=== PATIENT | male | born 1950 | race Caucasian/White ===

== ENCOUNTER → 2018-06-10 | Outpatient (CLI) | payer MEDICARE, OTHER | LOC: COL.RAD 13:30 | DX: M47.26 Other spondylosis with radiculopathy, lumbar region (principal); M16.12 Unilateral primary osteoarthritis, left hip ==

== ENCOUNTER 2021-07-24 17:06 | Inpatient (IN) | payer MEDICARE, OTHER ==
[2021-07-24] VITALS (74 sets, daily range): BP systolic 101–104; BP diastolic 54–65; PULSE 101; TEMP 98.1; O2SAT 89–97
[~2021-07-24] VITALS: Ht 177.8 cm; Wt 108.6 kg
[2021-07-24 17:57] LABS: HEMOGLOBIN 12.3 g/dl (13.5-18.0); MEAN CELL VOLUME 86 fl (80.0-100.0); MEAN CORPUSCULAR HEMOGLOBIN 29 pg (27.0-31.0); MEAN CORPUSCULAR HGB CONC 33 g/dl (33.0-37.0); PLATELET COUNT 374 K/mm3 (130-400); RED BLOOD COUNT 4.26 M/mm3 (4.20-5.60); REDCELL DISTRIBUTION WIDTH-CV 15.9 % (11.5-14.5)
[2021-07-24 18:31] LABS: HEMATOCRIT 36.8 % (42.0-52.0)
[2021-07-24] MEDS ORDERED: PRINIVIL20 MG PO (18:39)
[2021-07-24] MEDS ORDERED: LIPITOR 40MG TA40 MG PO (18:39)
[2021-07-24] MEDS ORDERED: XARELTO10 MG PO (18:39)
[2021-07-24 18:42] LABS: INR 1.9 (0.8-3.0); PROTHROMBIN TIME 20.7 SECONDS (9.7-12.8)
[2021-07-24 18:50] LABS: ALBUMIN 1.6 gm/dL (3.4-4.8); BILIRUBIN,TOTAL 1.4 mg/dL (0.2-1.2); C-REACTIVE PROTEIN 28.43 mg/dL (0.00-0.50); CALCIUM 8.1 mg/dL (8.4-10.2); CREATININE, serum 2.95 mg/dL (0.72-1.25); POTASSIUM 3.5 mmol/L (3.5-4.5)
[2021-07-24 18:55] LABS: TROPONIN-I 0.014 ng/mL (0.00-0.033)
[2021-07-24 19:02] LABS: BAND 2 % (0-10); LYMPHOCYTE 7 % (20.0-51.0); NEUTROPHILS 83 % (42.0-75.2)
[2021-07-24 19:04] LABS: ANISOCYTOSIS 1+; HYPOCHROMIA 1+; PLATELET ESTIMATE NORMAL (NORMAL)
[2021-07-24 21:42] LABS: CLOSTRIDIUM DIFF A/B NEG; CLOSTRIDIUM DIFF A/B INTERP NonToxigenic C.diff
[2021-07-25] VITALS (692 sets, daily range): BP systolic 73–113; BP diastolic 48–95; PULSE 90–117; TEMP 97–98.8; O2SAT 88–96
--- NOTE | 2021-07-25 02:46 | NUR ---
MERRITT 16 FR PLACED BY VIA YONI'S PROTOCOL ON CLEANING AND INSERTION. 240 CC RESIDUAL DARK ADWOA COLORED URINE CLEAR
[2021-07-25 05:00] LABS: HEMOGLOBIN 10.8 g/dl (13.5-18.0); MEAN CELL VOLUME 84 fl (80.0-100.0); MEAN CORPUSCULAR HEMOGLOBIN 28 pg (27.0-31.0); MEAN CORPUSCULAR HGB CONC 34 g/dl (33.0-37.0); MEAN PLATELET VOLUME 10.6 fl (7.4-10.4); PLATELET COUNT 366 K/mm3 (130-400); RED BLOOD COUNT 3.83 M/mm3 (4.20-5.60); REDCELL DISTRIBUTION WIDTH-CV 15.9 % (11.5-14.5)
[2021-07-25 05:18] LABS: HEMATOCRIT 32.1 % (42.0-52.0)
[2021-07-25 05:21] LABS: CREATININE, serum 2.85 mg/dL (0.72-1.25); POTASSIUM 3.4 mmol/L (3.5-4.5)
[2021-07-25 05:27] LABS: BAND 28 % (0-10); LYMPHOCYTE 5 % (20.0-51.0); METAMYELOCYTE 1 % (0-0); NEUTROPHILS 58 % (42.0-75.2); PLATELET ESTIMATE NORMAL (NORMAL)
--- NOTE | 2021-07-25 09:44 | NUR ---
MR. TURCIOS APPEARS TO BE IN SOME PAIN. HIS ABDOMEN IS VERY DISTENDED AND FIRM.
--- NOTE | 2021-07-25 11:31 | NUR ---
Mobile Architect met with patient to discuss discharge planning. Patient lives in [facility] with his , Tiffany (ph#[phone]) [address] Dr. Reyes for primary care. Patient obtains medications from [facility] with no difficulties. Patient has been using a walker since his knee surgery on 07/12/21 and is set up with outpatient therapy at the [facility]. Patient reports he is normally independent with ADLS and plans to return home upon discharge. Patient does not have Advance Directives and is not sure if he wants to designate DPOA-HC at this time, but will think about it. Patient worked with PT and recommendation is for home with continued outpatient PT. Discharge Plan: Home
--- NOTE | 2021-07-25 18:30 | NUR ---
Received report from GANESH Mckenzie. All medications verified and all questions answered. Patient resting in bed. VSS. Patient on NS at 100mls/hr and levophed gtt at 53mls/hr. Patient on 3L O2 via NC. No concerns or complaints noted from patient at this time. Will resume care of patient at this time.
--- NOTE | 2021-07-25 21:00 | NUR ---
This RN increased patient to 4L O2 via NC d/t some increased shortness of breath. VSS. Patient has mild complaints of abdominal and right knee pain. Administered 2mg IV morphine for pain management. RT notified of O2 increase.
[2021-07-26] VITALS (246 sets, daily range): BP systolic 65–126; BP diastolic 36–64; PULSE 106–180; TEMP 97.6–98.7; O2SAT 90–95
[2021-07-26 05:55] LABS: HEMOGLOBIN 10.6 g/dl (13.5-18.0); MEAN CELL VOLUME 85 fl (80.0-100.0); MEAN CORPUSCULAR HEMOGLOBIN 29 pg (27.0-31.0); MEAN CORPUSCULAR HGB CONC 34 g/dl (33.0-37.0); MEAN PLATELET VOLUME 10.4 fl (7.4-10.4); PLATELET COUNT 351 K/mm3 (130-400); RED BLOOD COUNT 3.67 M/mm3 (4.20-5.60); REDCELL DISTRIBUTION WIDTH-CV 16.2 % (11.5-14.5)
[2021-07-26 05:58] LABS: HEMATOCRIT 31.2 % (42.0-52.0)
[2021-07-26 06:28] LABS: CALCIUM 6.7 mg/dL (8.4-10.2); CREATININE, serum 2.89 mg/dL (0.72-1.25); POTASSIUM 3.6 mmol/L (3.5-4.5)
--- NOTE | 2021-07-26 07:00 | NUR ---
Pt drowsy and having difficulty speaking in long sentences d/t shallow breathing. Pt denies shortness of breath, but does recognize abdomen distension making breathing more difficult than normal. Audible expiratory wheeze heard, however auscultation wheeze is less prominent Pt confused on date and time - otherwise oriented. Call light in reach
[2021-07-26 07:11] LABS: BAND 64 % (0-10); LYMPHOCYTE 8 % (20.0-51.0); METAMYELOCYTE 5 % (0-0); NEUTROPHILS 18 % (42.0-75.2)
[2021-07-26 07:12] LABS: ANISOCYTOSIS 1+; PLATELET ESTIMATE NORMAL (NORMAL)
[2021-07-26 13:09] LABS: CREATININE, serum 2.74 mg/dL (0.72-1.25); SODIUM 134 mmol/L (136-145)
[2021-07-26 13:13] LABS: FRACTIONAL EXCRETION OF NA+ 0.43 %
--- NOTE | 2021-07-26 17:06 | NUR ---
OR team here to take pt for surgery - pt's Tiffany at bedside
--- NOTE | 2021-07-26 17:10 | NUR ---
Pt to OR
--- NOTE | 2021-07-26 20:20 | NUR ---
Received call from OR that patient finished from surgery and on way back to unit and that patient will be intubated. Will receive bedside report on patient status and surgery outcome.
--- NOTE | 2021-07-26 20:31 | NUR ---
Patient arrived to unit via ICU bed and intubated accompanied by anesthesia provider, Dr. Leos and OR nurse. This RN will resume care of patient. Received beside report from OR nurse and Dr. Leos. Patient had colectomy with ostomy creation. Patient abdominal dressing CDI with telfa strips between staple line with adaptic and ABD pad and medipore tape to secure dressing. Patient abd appears rigid but hypoactice bowel sounds heard in left upper and lower quadrant while bowel sounds absent in right lower/upper quadrant. Patient has right sided ostomy. Patient intubated and had left radial art line placed in OR. Patient arrived to unit on 64.8mls/hr of levophed and was receiving LR bolus. Patient connected to ventilator with vent settings on assist control mode with peep of 10, fio2 of 80%, 500tv and rr of 16 with 8.0 ETT that sits 26cm at the teeth. NG tube inserted in OR and measured at 59cm and hooked to LIS per Dr. Leos. Hospitalist at bedside at 2044 to assess patient and place orders. Patient HR elevated at 126bpm, with low BPs reading 80s/40s via art line. This RN began to titrate levophed up and received order for quad strength levophed concentration. Patient also hooked up to CVP monitoring with CVP reading of 8. Patient started on fentanyl gtt at 1/3mls/hr and propofol gtt at 13mls/hr.
[2021-07-26 21:08] LABS: ARTERIAL BLD GAS O2 SATURATION 93.4 % (92-100); ARTERIAL BLD GAS TCO2 CT 14.9; ARTERIAL BLOOD GAS BASE EXCESS -14.5 (-2-2); ARTERIAL BLOOD GAS HCO3 13.6 meq/L (22-26); ARTERIAL BLOOD GAS PCO2 40.8 mmHg (35-45); ARTERIAL BLOOD GAS PO2 84.7 mmHg (80-100)
[2021-07-26 21:09] LABS: ARTERIAL BLOOD GAS pH 7.14 (7.35-7.45)
[2021-07-26 22:04] LABS: HEMOGLOBIN 10.2 g/dl (13.5-18.0); MEAN CORPUSCULAR HEMOGLOBIN 28 pg (27.0-31.0); MEAN CORPUSCULAR HGB CONC 31 g/dl (33.0-37.0); MEAN PLATELET VOLUME 10.2 fl (7.4-10.4); PLATELET COUNT 354 K/mm3 (130-400); RED BLOOD COUNT 3.63 M/mm3 (4.20-5.60); REDCELL DISTRIBUTION WIDTH-CV 16.8 % (11.5-14.5)
[2021-07-26 22:15] LABS: HEMATOCRIT 32.7 % (42.0-52.0); MEAN CELL VOLUME 90 fl (80.0-100.0)
[2021-07-26 22:25] LABS: ALBUMIN 0.9 gm/dL (3.4-4.8); BILIRUBIN,TOTAL 0.7 mg/dL (0.2-1.2); CREATININE, serum 2.5 mg/dL (0.72-1.25); MAGNESIUM 2.2 mg/dL (1.6-2.6); PHOSPHOROUS 7.1 mg/dL (2.3-4.7); POTASSIUM 4.1 mmol/L (3.5-4.5)
[2021-07-26 23:14] LABS: BAND 12 % (0-10); BASOPHIL 1 % (0-2); EOSINOPHIL 2 % (0-4); LYMPHOCYTE 19 % (20.0-51.0); METAMYELOCYTE 6 % (0-0); NEUTROPHILS 57 % (42.0-75.2); PLATELET ESTIMATE NORMAL (NORMAL)
[2021-07-26 23:16] LABS: ANISOCYTOSIS 1+; HYPOCHROMIA 2+
[2021-07-27] VITALS (30 sets, daily range): BP systolic 89–150; BP diastolic 51–86; PULSE 73–118; TEMP 97.8–99.5
[2021-07-27 02:09] LABS: ARTERIAL BLD GAS O2 SATURATION 97.3 % (92-100); ARTERIAL BLD GAS TCO2 CT 14.1; ARTERIAL BLOOD GAS BASE EXCESS -12.1 (-2-2); ARTERIAL BLOOD GAS HCO3 13.3 meq/L (22-26); ARTERIAL BLOOD GAS PCO2 28.6 mmHg (35-45); ARTERIAL BLOOD GAS PO2 111.9 mmHg (80-100); ARTERIAL BLOOD GAS pH 7.28 (7.35-7.45)
[2021-07-27 02:53] LABS: CREATININE, serum 2.37 mg/dL (0.72-1.25); POTASSIUM 3.9 mmol/L (3.5-4.5)
[2021-07-27 02:55] LABS: CALCIUM 5.6 mg/dL (8.4-10.2)
[2021-07-27 04:42] LABS: MEAN CELL VOLUME 86 fl (80.0-100.0); MEAN CORPUSCULAR HGB CONC 33 g/dl (33.0-37.0); MEAN PLATELET VOLUME 10.7 fl (7.4-10.4); PLATELET COUNT 256 K/mm3 (130-400); RED BLOOD COUNT 3.22 M/mm3 (4.20-5.60); REDCELL DISTRIBUTION WIDTH-CV 16.6 % (11.5-14.5)
--- NOTE | 2021-07-27 05:23 | NUR ---
Sedation vacation not attempted d/t patient being intubated for less than 24 hours.
[2021-07-27 05:31] LABS: ALBUMIN 1.9 gm/dL (3.4-4.8); BILIRUBIN,TOTAL 0.9 mg/dL (0.2-1.2); CALCIUM 6.2 mg/dL (8.4-10.2); CREATININE, serum 2.3 mg/dL (0.72-1.25); PHOSPHOROUS 5.7 mg/dL (2.3-4.7); TOTAL PROTEIN 4.3 gm/dL (6.2-8.1)
[2021-07-27 05:34] LABS: HEMATOCRIT 27.8 % (42.0-52.0); HEMOGLOBIN 9.1 g/dl (13.5-18.0); MEAN CORPUSCULAR HEMOGLOBIN 28 pg (27.0-31.0)
[2021-07-27 07:08] LABS: BAND 6 % (0-10); BASOPHIL 1 % (0-2); BURR CELLS 1+; HYPOCHROMIA 1+; LYMPHOCYTE 6 % (20.0-51.0); METAMYELOCYTE 9 % (0-0); NEUTROPHILS 74 % (42.0-75.2); PLATELET ESTIMATE NORMAL (NORMAL)
[2021-07-27 07:09] LABS: POIKILOCYTOSIS 1+
--- NOTE | 2021-07-27 14:26 | NUR ---
Sedation vacation performed: sedation paused while performing care in room - pt able to open eyes, answer yes and now questions with head nods, pt able to weakly move all extremities - sedation then resumed
--- NOTE | 2021-07-27 15:23 | NUR ---
Patient is currently intubated. Beauty Culture Teacher contacted patient's , Tiffany to check in before the weekend. Tiffany reports she is happy with the care patient has received. Tiffany has no questions or concerns for SW at this time.
[2021-07-27 18:02] LABS: MEAN CELL VOLUME 85 fl (80.0-100.0); MEAN CORPUSCULAR HGB CONC 34 g/dl (33.0-37.0); MEAN PLATELET VOLUME 10.4 fl (7.4-10.4); PLATELET COUNT 169 K/mm3 (130-400); RED BLOOD COUNT 2.56 M/mm3 (4.20-5.60); REDCELL DISTRIBUTION WIDTH-CV 16.7 % (11.5-14.5)
[2021-07-27 18:06] LABS: HEMATOCRIT 21.7 % (42.0-52.0); HEMOGLOBIN 7.3 g/dl (13.5-18.0); MEAN CORPUSCULAR HEMOGLOBIN 29 pg (27.0-31.0)
[2021-07-27 18:15] LABS: CALCIUM 6.3 mg/dL (8.4-10.2); CREATININE, serum 1.61 mg/dL (0.72-1.25); POTASSIUM 3.7 mmol/L (3.5-4.5)
[2021-07-28] VITALS (84 sets, daily range): BP systolic 106–142; BP diastolic 59–81; PULSE 62–79; TEMP 97.8–98.2; O2SAT 94–96
[2021-07-28 00:07] LABS: HEMATOCRIT 23.3 % (42.0-52.0); HEMOGLOBIN 7.9 g/dl (13.5-18.0)
[2021-07-28 03:57] LABS: MEAN CELL VOLUME 86 fl (80.0-100.0); MEAN CORPUSCULAR HGB CONC 33 g/dl (33.0-37.0); MEAN PLATELET VOLUME 10.5 fl (7.4-10.4); PLATELET COUNT 146 K/mm3 (130-400); RED BLOOD COUNT 2.73 M/mm3 (4.20-5.60); REDCELL DISTRIBUTION WIDTH-CV 16.9 % (11.5-14.5)
[2021-07-28 04:01] LABS: HEMATOCRIT 23.5 % (42.0-52.0); HEMOGLOBIN 7.7 g/dl (13.5-18.0); MEAN CORPUSCULAR HEMOGLOBIN 28 pg (27.0-31.0)
[2021-07-28 04:15] LABS: ARTERIAL BLD GAS O2 SATURATION 97.3 % (92-100); ARTERIAL BLOOD GAS BASE EXCESS -8.4 (-2-2); ARTERIAL BLOOD GAS PCO2 23.6 mmHg (35-45); ARTERIAL BLOOD GAS PO2 99.9 mmHg (80-100); ARTERIAL BLOOD GAS pH 7.42 (7.35-7.45)
[2021-07-28 04:17] LABS: ALBUMIN 2.5 gm/dL (3.4-4.8); BILIRUBIN,TOTAL 1.2 mg/dL (0.2-1.2); CALCIUM 6.7 mg/dL (8.4-10.2); CREATININE, serum 1.51 mg/dL (0.72-1.25); MAGNESIUM 2.2 mg/dL (1.6-2.6); PHOSPHOROUS 4.2 mg/dL (2.3-4.7); POTASSIUM 3.6 mmol/L (3.5-4.5); TOTAL PROTEIN 4.8 gm/dL (6.2-8.1)
[2021-07-28 04:21] LABS: BAND 54 % (0-10); LYMPHOCYTE 6 % (20.0-51.0); METAMYELOCYTE 3 % (0-0); NEUTROPHILS 33 % (42.0-75.2)
[2021-07-28 04:22] LABS: ANISOCYTOSIS 1+; PLATELET ESTIMATE NORMAL (NORMAL)
--- NOTE | 2021-07-28 06:45 | NUR ---
AFEBRILE, BP SUPPORTED BY MULTIPLE VASOPRESSORS, SEDATION ACHIEVED BY PROPOFOL AND FENTANYL. TRANSFUSED X1 UNIT PRBC, HgH TRENDING. FRANK SALAMANCA INSTRUCTED NOT TO INFUSE 2ND UNIT. SEE MAR/EMAR FOR OTHER DETAILS.
--- NOTE | 2021-07-28 18:00 | NUR ---
PATIENT DID WELL TODAY; DID NOT HAVE TO INCREASE ANY PRESSORS AND HIS PRESSURES WERE STABLE. STARTED TPN TODAY AND STOPPED NS; WILL RESTART FLUIDS IF BLOOD PRESSURES START TO DROP.
--- NOTE | 2021-07-28 18:00 | NUR ---
DID NOT PERFORM A SEDATION VACATION TODAY; PATIENT WAS RESPONSIVE BUT COMFORTABLE AND RESPONDED APPROPRIATELY.
--- NOTE | 2021-07-28 19:51 | NUR ---
RECEIVED PHONE CALL FROM DR. CAT DISCUSSED DRIPS AND POC FOR THIS SHIFT STATING THAT IF POSSIBLE TO TITRATE OFF PRESSORS AND THEN ONCE OFF PRESSORS IF B/P DECREASED TO STOP TPN AND RESTART NS
--- NOTE | 2021-07-28 20:00 | NUR ---
DURING ROUTINE ASSESSMENT OF ART LINE NOTED THAT FLUID BAG WITH LITTLE AMOUNT LEFT, THEN NOTED THAT FLUID WAS HEPARIN 1,000 UNITS IN 500ML SPOKE WITH FRANK SALAMANCA WHO THEN REFERRED TO E-CARE FOR FURTHER DIRECTIONS SINCE THIS CONCENTRATION IS NOT READILY AVAILABLE, E CARE DR. SHEEHAN STATED THAT IT WOULD BE OK TO CHANGE OUT TO NS FOR FLUID
--- NOTE | 2021-07-28 21:00 | NUR ---
PATIENT ART LINE CONTINUES TO NOT GIVE ACURATE READING, ATTEMPTED TO FLUSH WITH SOME RESISTANCE, NOTED EDEMA TO LEFT ARM ABOVE ART LINE INSERTION SITE AND UNABLE TO OBTAIN BLOOD RETURN FROM LINE, NOTIFIED FRANK SALAMANCA AND DISCONTINUED LINE, PRESSURE HELD FOR 5 MINUTES WITH HEMOSTASIS OBTAINED
--- NOTE | 2021-07-28 23:00 | NUR ---
DRESSING TO RIGHT IJ CHANGED USING STERILE TECHNIQUE, PATIENT TOLERATED WITHOUT DIFFICULTY
[2021-07-29] VITALS (459 sets, daily range): BP systolic 106–170; BP diastolic 66–107; PULSE 75–124; TEMP 98.1–98.7; O2SAT 75–98
[2021-07-29 04:29] LABS: ARTERIAL BLD GAS O2 SATURATION 92.9 % (92-100); ARTERIAL BLOOD GAS BASE EXCESS -6.7 (-2-2); ARTERIAL BLOOD GAS HCO3 17.3 meq/L (22-26); ARTERIAL BLOOD GAS PCO2 28.8 mmHg (35-45); ARTERIAL BLOOD GAS PO2 71.3 mmHg (80-100)
[2021-07-29 04:30] LABS: ARTERIAL BLD GAS TCO2 CT 9.8
[2021-07-29 05:43] LABS: MEAN CELL VOLUME 88 fl (80.0-100.0); MEAN CORPUSCULAR HGB CONC 32 g/dl (33.0-37.0); MEAN PLATELET VOLUME 10.7 fl (7.4-10.4); PLATELET COUNT 121 K/mm3 (130-400); RED BLOOD COUNT 2.41 M/mm3 (4.20-5.60); REDCELL DISTRIBUTION WIDTH-CV 16.9 % (11.5-14.5)
[2021-07-29 05:53] LABS: ALBUMIN 2.6 gm/dL (3.4-4.8); BILIRUBIN,TOTAL 0.8 mg/dL (0.2-1.2); CALCIUM 6.9 mg/dL (8.4-10.2); CREATININE, serum 1.48 mg/dL (0.72-1.25); MAGNESIUM 2.3 mg/dL (1.6-2.6); PHOSPHOROUS 2.7 mg/dL (2.3-4.7); POTASSIUM 3.5 mmol/L (3.5-4.5)
[2021-07-29 05:54] LABS: HEMATOCRIT 21.3 % (42.0-52.0); HEMOGLOBIN 6.9 g/dl (13.5-18.0); MEAN CORPUSCULAR HEMOGLOBIN 29 pg (27.0-31.0)
[2021-07-29 06:46] LABS: ANISOCYTOSIS 1+; BAND 1 % (0-10); LYMPHOCYTE 8 % (20.0-51.0); METAMYELOCYTE 1 % (0-0); NEUTROPHILS 88 % (42.0-75.2)
[2021-07-29 06:47] LABS: MICROCYTOSIS 1+; OVALOCYTES 1+; POIKILOCYTOSIS 1+
[2021-07-29 06:48] LABS: PLATELET ESTIMATE DECREASED (NORMAL)
--- NOTE | 2021-07-29 07:30 | NUR ---
Report received from GANESH Peralta. Patient vent settings, lines and tubes reviewed. Patient sedated and opens eyes, but does not track me when I talk to him. VS Stable at this time. Art line is out and vasopressors are off. Will continue to monitor closely.
--- NOTE | 2021-07-29 09:30 | NUR ---
Patient has been on weaning trial since 801. He is tachycardic, SPO2 88%, Tachypneic with rate of 35. Patient is able to follow commands and respond appropriately with head nods and other body language. Spoke with Dr. Rendon and he gives order to abort weaning trial and place patient back in AC mode.
--- NOTE | 2021-07-29 17:00 | NUR ---
SEDATION VACATION COMPLETED DURING THE WEANING TRIAL THIS MORNING. SEE PREVIOUS NOTE.
--- NOTE | 2021-07-29 17:15 | NUR ---
Patient's and brother's updated throughout the day. They are happy with his progress. I explain the plan of care to them and the goal to extubate when he is ready. I explain the weaning process and spontaneous breathing trials. all questions are answered during these conversations.
--- NOTE | 2021-07-29 19:29 | NUR ---
Received report from GANESH Hanna. All medications verified and all questions answered. Patient intubated and sedated with vent settings on AC mode with a TV of 500, peep of 5, rr of 16 and fio2 of 40%. Fentany gtt running at 2.5.mls/hr and propofol gtt running at 13mls/hr. VSS. Midline incision dressing CDI. Patient in contact precautions d/t positive PCR cdiff result. Will resume care of patient at this time.
[2021-07-30] VITALS (850 sets, daily range): BP systolic 133–173; BP diastolic 77–117; PULSE 68–110; TEMP 97.3–99.4; O2SAT 86–97
[2021-07-30 04:38] LABS: BASO % 0.2 % (0.0-2.0); GRAN # 11.9 K/mm3 (1.4-6.5); GRAN % 82.9 % (42.2-75.2); LYMPH # 0.8 K/mm3 (1.2-3.4); LYMPH % 5.4 % (20.0-51.0); MEAN CELL VOLUME 88 fl (80.0-100.0); MEAN CORPUSCULAR HGB CONC 32 g/dl (33.0-37.0); MONO # 0.6 K/mm3 (0.1-0.6); MONO % 3.9 % (1.7-9.3); PLATELET COUNT 123 K/mm3 (130-400); RED BLOOD COUNT 2.72 M/mm3 (4.20-5.60)
[2021-07-30 04:39] LABS: HEMOGLOBIN 7.7 g/dl (13.5-18.0); MEAN CORPUSCULAR HEMOGLOBIN 28 pg (27.0-31.0)
[2021-07-30 04:41] LABS: ARTERIAL BLD GAS O2 SATURATION 94.1 % (92-100); ARTERIAL BLD GAS TCO2 CT 21.7; ARTERIAL BLOOD GAS BASE EXCESS -4.5 (-2-2); ARTERIAL BLOOD GAS HCO3 20.5 meq/L (22-26); ARTERIAL BLOOD GAS PCO2 37.5 mmHg (35-45); ARTERIAL BLOOD GAS PO2 76.8 mmHg (80-100); ARTERIAL BLOOD GAS pH 7.36 (7.35-7.45)
[2021-07-30 04:57] LABS: ALBUMIN 3.1 gm/dL (3.4-4.8); C-REACTIVE PROTEIN 5.63 mg/dL (0.00-0.50); CALCIUM 7.3 mg/dL (8.4-10.2); CREATININE, serum 1.26 mg/dL (0.72-1.25); POTASSIUM 4.8 mmol/L (3.5-4.5); TOTAL PROTEIN 5.5 gm/dL (6.2-8.1)
--- NOTE | 2021-07-30 06:05 | NUR ---
Sedation vacation and weaning trial started at 0430. Fentanyl gtt decreased to 1.3mls/hr and propofol gtt decreased to 6.5mls/hr. Patient alert and able to follow simple commands at this time. VSS. At 0530 patient taken off weaning trial and sedation vacation d/t HR of 113, bp of 173/113 and SpO2 of 86%. Patient restless in bed but alert and still able to follow commands.
--- NOTE | 2021-07-30 07:31 | NUR ---
RECEIVED BEDSIDE SHIFT REPORT FROM GANESH BELLA. PATIENT'S VITALS ARE STABLE. PATIENT CURRENTLY REMAINS INTUBATED AND SEDATED. MERRITT CATHETER, ILEOSTOMY AND RIJ ARE IN PLACE AND PATENT. SEE GTT TITRATION FLOWSHEET.
[2021-07-30 09:52] LABS: MAGNESIUM 2.4 mg/dL (1.6-2.6); PHOSPHOROUS 2.9 mg/dL (2.3-4.7)
[2021-07-30 10:24] LABS: CLOSTRIDIUM DIFF A/B NEG; CLOSTRIDIUM DIFF A/B INTERP No C.diff present
--- NOTE | 2021-07-30 18:10 | NUR ---
NO SEDATION VACATION THIS EVENING. PATIENT NOT TOLERATING VENTILATOR THIS A.M.
--- NOTE | 2021-07-30 19:28 | NUR ---
Received report from GANESH Lala. All medications verified and all questions answered. Patient in contact precautions d/t positive cdiff PCR send out. Patient intubated and sedated with fentanyl gtt running at 3.8mls/hr and propofol at 19.4mls/hr. Patient on AC vent mode with settings of 500 TV, peep of 6, fio2 of 40% and rate of 18. vss. Will resume care of patient at this time.
[2021-07-31] VITALS (616 sets, daily range): BP systolic 133–158; BP diastolic 72–101; PULSE 59–98; TEMP 98–98.6; O2SAT 83–95
[2021-07-31 04:45] LABS: MEAN CELL VOLUME 89 fl (80.0-100.0); MEAN CORPUSCULAR HGB CONC 33 g/dl (33.0-37.0); MEAN PLATELET VOLUME 11.3 fl (7.4-10.4); PLATELET COUNT 144 K/mm3 (130-400); RED BLOOD COUNT 2.79 M/mm3 (4.20-5.60); REDCELL DISTRIBUTION WIDTH-CV 17.2 % (11.5-14.5)
[2021-07-31 04:50] LABS: HEMATOCRIT 24.9 % (42.0-52.0); HEMOGLOBIN 8.1 g/dl (13.5-18.0); MEAN CORPUSCULAR HEMOGLOBIN 29 pg (27.0-31.0)
[2021-07-31 05:02] LABS: CALCIUM 7.7 mg/dL (8.4-10.2); CREATININE, serum 1.1 mg/dL (0.72-1.25); MAGNESIUM 2.4 mg/dL (1.6-2.6); PHOSPHOROUS 2.6 mg/dL (2.3-4.7); POTASSIUM 5.1 mmol/L (3.5-4.5)
[2021-07-31 05:10] LABS: ARTERIAL BLD GAS O2 SATURATION 95.5 % (92-100); ARTERIAL BLD GAS TCO2 CT 21.8; ARTERIAL BLOOD GAS BASE EXCESS -3.1 (-2-2); ARTERIAL BLOOD GAS HCO3 20.8 meq/L (22-26); ARTERIAL BLOOD GAS PCO2 32.3 mmHg (35-45); ARTERIAL BLOOD GAS PO2 82.6 mmHg (80-100); ARTERIAL BLOOD GAS pH 7.43 (7.35-7.45)
[2021-07-31 05:27] LABS: LYMPHOCYTE 8 % (20.0-51.0); METAMYELOCYTE 1 % (0-0); NEUTROPHILS 89 % (42.0-75.2); PLATELET ESTIMATE NORMAL (NORMAL)
--- NOTE | 2021-07-31 06:07 | NUR ---
Sedation vacation completed. Patient HR began to tach up to 90-110s and BP reading of 158/101. Patient O2 dropped from 94% to 90%. Patient becoming restless and moving around in bed. Able to open eyes spontaneously and shake head back and forth but not able to follow commands. Fentanyl gtt increased to 5mls/hr and propofol gtt increased to 22.7mls/hr.
--- NOTE | 2021-07-31 07:23 | NUR ---
RECEIVED BEDSIDE REPORT FROM GANESH BELLA. PATIENT STILL SEDATED AND INTUBATED. PATIENT EXPERIENCED SOME HYPERTENTION LAST NIGHT. VSS FOR PATIENT. TOLERATING FEEDS. OUTPUT IS IMPROVING. MERRITT CATHETER STILL IN PLACE AND PATENT. CENTRAL LINE STILL IN PLACE, PATENT WITH GOOD BLOOD RETURN. SEE GTT TITRATION FLOWSHEET.
[2021-07-31 09:44] LABS: CALCIUM 7.8 mg/dL (8.4-10.2); CREATININE, serum 1.19 mg/dL (0.72-1.25); POTASSIUM 5.1 mmol/L (3.5-4.5)
--- NOTE | 2021-07-31 17:00 | NUR ---
PATIENT DID NOT TOLERATE SEDATION VACATION VERY WELL. HYPERTENSIVE AND TACHYCARDIC AND AGITATED. LASTED ABOUT 20 MINUTES.
--- NOTE | 2021-07-31 23:44 | NUR ---
RECEIVED A PHONE CALL FROM DR. FIGUEROA UPDATED ON PATIENT STATUS AND CURRENT TUBE FEEDINGS AND FLUSHES WITH RESIDUAL OF 10ML AT LAST CHECK, NEW ORDERS RECEIVED TO INCREASE FREE WATER FLUSHES TO 300ML EVERY 4 HOURS AND TO INCREASE SLIDE SCALE INSULIN DOSE TO HIGH SLIDING SCALE FROM MEDIUM SLIDING SCALE
[2021-08-01] VITALS (729 sets, daily range): BP systolic 159–184; BP diastolic 85–111; PULSE 59–94; TEMP 98.4–100.4; O2SAT 89–97
[2021-08-01 06:11] LABS: CALCIUM 8.2 mg/dL (8.4-10.2); CREATININE, serum 1.16 mg/dL (0.72-1.25); MAGNESIUM 2.2 mg/dL (1.6-2.6); PHOSPHOROUS 2.4 mg/dL (2.3-4.7); POTASSIUM 4.7 mmol/L (3.5-4.5)
--- NOTE | 2021-08-01 07:43 | NUR ---
SEDATION VACATION INITIATED WITH FENTANYL BEING DECREASED FROM 75MCG/HR TO 50 MCG/HR AND PROPOFOL FROM 30 MCG/KG/HR TO 25 MCG/KG/HR, SEDATION VACATION TAKEN SLOWLY DUE TO PREVIOUS FAILED WEANING TRIALS
[2021-08-01 10:31] LABS: ARTERIAL BLD GAS TCO2 CT 21.2; ARTERIAL BLOOD GAS BASE EXCESS -2.6 (-2-2); ARTERIAL BLOOD GAS HCO3 20.3 meq/L (22-26); ARTERIAL BLOOD GAS PCO2 28.4 mmHg (35-45); ARTERIAL BLOOD GAS PO2 66.4 mmHg (80-100); ARTERIAL BLOOD GAS pH 7.47 (7.35-7.45)
--- NOTE | 2021-08-01 10:32 | NUR ---
Weaning Trial terminated by MD Patricio due to paradoxical breathing and decrease in SpO2 from high 90's to 89-90%
[2021-08-02] VITALS (665 sets, daily range): BP systolic 109–162; BP diastolic 81–116; PULSE 77–130; TEMP 98.2–100; O2SAT 91–97
[2021-08-02 02:40] LABS: ARTERIAL BLD GAS O2 SATURATION 95.7 % (92-100); ARTERIAL BLD GAS TCO2 CT 19.5; ARTERIAL BLOOD GAS BASE EXCESS -4.7 (-2-2); ARTERIAL BLOOD GAS HCO3 18.7 meq/L (22-26); ARTERIAL BLOOD GAS PCO2 28.3 mmHg (35-45); ARTERIAL BLOOD GAS pH 7.44 (7.35-7.45)
--- NOTE | 2021-08-02 05:00 | NUR ---
PHONE E CARE AND LEFT MESSAGE WITH NURSE, REMI AND RECEIVED RETURN PHONE CALL FROM DR. ARTHUR, DISCUSSED PATIENT CURRENT BLOOD SUGAR OF 104 AND HISTORY ALONG WITH INTERVENTIONS THAT HAVE BEEN IMPLEMENTED, DR. ARTHUR STATED TO HOLD SCHEDULED DOSE OF INSULIN AT THIS TIME AND SPOT CHECK IN APPROX. ONE HOUR
--- NOTE | 2021-08-02 05:00 | NUR ---
PATIENT SEDATION VACATION INITIATED FENTANYL DECREASED FROM 75MCG/HR TO 50MCG/HR AND VERSED DECREASED FROM 5MG/HR TO 4MG/HR
[2021-08-02 05:26] LABS: MEAN CELL VOLUME 91 fl (80.0-100.0); MEAN CORPUSCULAR HGB CONC 31 g/dl (33.0-37.0); MEAN PLATELET VOLUME 11.8 fl (7.4-10.4); PLATELET COUNT 191 K/mm3 (130-400); RED BLOOD COUNT 3.16 M/mm3 (4.20-5.60); REDCELL DISTRIBUTION WIDTH-CV 17.5 % (11.5-14.5)
[2021-08-02 05:27] LABS: HEMATOCRIT 28.8 % (42.0-52.0); HEMOGLOBIN 8.9 g/dl (13.5-18.0); MEAN CORPUSCULAR HEMOGLOBIN 28 pg (27.0-31.0)
--- NOTE | 2021-08-02 05:33 | NUR ---
PT MEETS REQUIREMENTS TO TRIAL. PT TRIALED DURING THE DAY YESTERDAY. RT IS UNAVAILABLE AT THIS TIME TO START A TRIAL. WILL PASS TASK ONTO DAYSHIFT.
[2021-08-02 05:46] LABS: CALCIUM 7.8 mg/dL (8.4-10.2); CREATININE, serum 0.76 mg/dL (0.72-1.25); MAGNESIUM 1.8 mg/dL (1.6-2.6); PHOSPHOROUS 2.2 mg/dL (2.3-4.7); POTASSIUM 3.5 mmol/L (3.5-4.5)
[2021-08-02 06:12] LABS: BAND 5 % (0-10); LYMPHOCYTE 9 % (20.0-51.0); NEUTROPHILS 81 % (42.0-75.2)
[2021-08-02 06:13] LABS: ANISOCYTOSIS 1+; HYPOCHROMIA 3+; PLATELET ESTIMATE NORMAL (NORMAL)
[2021-08-02 06:14] LABS: SCHISTOCYTES 1+
--- NOTE | 2021-08-02 07:00 | NUR ---
RECEIVED REPORT FROM GANESH PAZ. PT RESTING IN BED ON VENT: AC, TV 500, PEEP 6, FIO2 40%, RR 16. FC PATENT AND DRAINING TO GRAVITY. UNIT ASSEMBLER IN PLACE. NGT TO RT NARE AT 58 CM WITH TF INFUSING AT 55ML/HR. VSS. SEE GTT FLOWSHEET. PT OPENS EYES WHEN SPOKEN TO.
--- NOTE | 2021-08-02 08:13 | NUR ---
PATIENT TOLERATING PREVIOUS TITRATION WELL WITHOUT ADVERSE REACTIONS AT THIS TIME DECREASED VERSED TO 3MG/HR AT THIS TIME
--- NOTE | 2021-08-02 08:30 | NUR ---
RESIDUAL 320. TF ON HOLD. DR ROJAS AWARE.
--- NOTE | 2021-08-02 10:30 | NUR ---
TF RESTART, RESIDUAL 0. PROVIDER THINKS WAS RELATED TO WHEN LAST [address] DONNELLY AT BEDSIDE WITH ULTRASOUND TO CHECK FOR BILATERAL PLEURAL EFFUSIONS. PROVIDER STATES THEY ARE TOO MINIMAL AND NOT CONCERNING AT THIS TIME. DR DONNELLY REQUESTS SEDATION TO BE PLACED ON HOLD AND TO BE CHANGED TO CPAP MODE ON VENT TO TRY WEANING TRIAL BID. RT MADE AWARE AND MADE CAHNGES. DR DONNELLY STATES DID CHANGE TV TO 470.
--- NOTE | 2021-08-02 11:40 | NUR ---
Patient still remains intubated at this time. Government Service Executive contacted patient's , Tiffany to check in. Tiffany reports she has been receiving updates from nursing staff and is hanging in there.
--- NOTE | 2021-08-02 15:03 | NUR ---
DR ROJAS AT BEDSIDE DISCUSSING WITH PT'S ABOUT POC AND HER WISHES FOR GOING FORTH. PROVIDER STARTED TRACH AND PEG TALK.
[2021-08-02 17:46] LABS: ALBUMIN 2.5 gm/dL (3.4-4.8); CALCIUM 7.7 mg/dL (8.4-10.2); CREATININE, serum 0.71 mg/dL (0.72-1.25); PHOSPHOROUS 3.3 mg/dL (2.3-4.7); POTASSIUM 4.1 mmol/L (3.5-4.5)
[2021-08-03] VITALS (632 sets, daily range): BP systolic 94–128; BP diastolic 66–83; PULSE 101–136; TEMP 98.3–100.4; O2SAT 86–97
[2021-08-03 05:21] LABS: ARTERIAL BLD GAS O2 SATURATION 94.2 % (92-100); ARTERIAL BLOOD GAS BASE EXCESS -2.5 (-2-2); ARTERIAL BLOOD GAS PCO2 31.9 mmHg (35-45); ARTERIAL BLOOD GAS PO2 74.5 mmHg (80-100); ARTERIAL BLOOD GAS pH 7.44 (7.35-7.45)
[2021-08-03 06:43] LABS: CALCIUM 7.7 mg/dL (8.4-10.2); CREATININE, serum 0.71 mg/dL (0.72-1.25); MAGNESIUM 1.7 mg/dL (1.6-2.6); PHOSPHOROUS 3.1 mg/dL (2.3-4.7)
--- NOTE | 2021-08-03 07:00 | NUR ---
RECEIVED REPORT FROM GANESH BLAND. PT RESTING EASILY ON VENT SETTINGS: TV 470, PEEP, 5, RR 18, FIO2 40%. FC PATENT AND DRAINING TO GRAVITY. ORTHOPEDIC RADIOLOGIC TECHNOLOGIST IN PLACE. VSS. HR CURRENTLY IN LOW 100s-110. SEE GTT FLOWSHEET.
--- NOTE | 2021-08-03 07:44 | NUR ---
WHILE ON CURRENT LEVEL OF SEDATION. PT OPENS EYES AND FOLLOWS COMMANDS.
--- NOTE | 2021-08-03 12:00 | NUR ---
MIDLINE SURGICAL DRESSING CHANGED AT THIS TIME. DR CHURCH AT BEDSIDE TO SEE JAYSHREE AND THAT IT IS STILL OPEN IN BETWEEN THEM, STATES LOOKS GOOD AND IS OK BECAUSE THEY WANT IT TO DRAIN. OSTOMY WAFER AND BAG CHANGED. TF INCREASED TO 60ML/HR PER ORDERS, RESIDUAL 10ML.
--- NOTE | 2021-08-03 12:20 | NUR ---
DR DONNELLY REQUESTS A WEANING TRIAL T OBE PERFORMED WITH SEDATION ON HOLD DURING. IV SEDATION ON HOLD AT THIS TIME. RT AT BEDSIDE TO PLACE PT ON CPAP MODE. WILL MONITOR CLOSELY D/T HR ALREADY 130 PRIOR TO STARTING WEANING TRIAL.
--- NOTE | 2021-08-03 13:26 | NUR ---
Detective Chief spoke with Hospitalist about referral to [facility]. Hospitalist advised family is still considering trach/peg. SW will continue to follow for family's decision on plan of care.
--- NOTE | 2021-08-03 14:52 | NUR ---
RT AT BEDSIDE PLACING PT BACK ON AC MODE. SEDATION BACK ON AT PREVIOUS RATES PER DR DONNELLY'S INSTRUCTIONS.
--- NOTE | 2021-08-03 17:05 | NUR ---
PT AROUSES EASILY WITH CURRENT SEDATION AND NODS HEAD YES OR NO WITH SIMPLE QUESTIONS, LIKE IF HE IS IN PAIN.
[2021-08-03 17:20] LABS: CALCIUM 7.7 mg/dL (8.4-10.2); CREATININE, serum 0.65 mg/dL (0.72-1.25); PHOSPHOROUS 3.1 mg/dL (2.3-4.7)
[2021-08-04] VITALS (720 sets, daily range): BP systolic 92–124; BP diastolic 56–73; PULSE 98–104; TEMP 98.4–99.2; O2SAT 91–99
[2021-08-04 04:28] LABS: ARTERIAL BLD GAS TCO2 CT 19.7; ARTERIAL BLOOD GAS BASE EXCESS -4.9 (-2-2); ARTERIAL BLOOD GAS HCO3 18.7 meq/L (22-26); ARTERIAL BLOOD GAS PCO2 29.5 mmHg (35-45); ARTERIAL BLOOD GAS PO2 88.2 mmHg (80-100); ARTERIAL BLOOD GAS pH 7.42 (7.35-7.45)
--- NOTE | 2021-08-04 05:37 | NUR ---
PT PLACED ON CPAP TRIAL AT THIS TIME, 40% FIO2 7 PSUPP
--- NOTE | 2021-08-04 05:38 | NUR ---
PT PLACED ON CPAP TRIAL THIS MORNING AT 0520, PATINET PULLING ADEQUATE VOLUMES AROUND 430-450, MAINTAINING A GOOD RATE
[2021-08-04 06:02] LABS: BASO % 0.1 % (0.0-2.0); EOS # 0.2 K/mm3 (0.0-0.7); EOS % 1.2 % (0-4.0); GRAN # 13.5 K/mm3 (1.4-6.5); GRAN % 83.9 % (42.2-75.2); LYMPH # 1.7 K/mm3 (1.2-3.4); LYMPH % 10.9 % (20.0-51.0); MEAN CELL VOLUME 93 fl (80.0-100.0); MEAN CORPUSCULAR HGB CONC 31 g/dl (33.0-37.0); MEAN PLATELET VOLUME 12.5 fl (7.4-10.4); MONO # 0.5 K/mm3 (0.1-0.6); MONO % 2.8 % (1.7-9.3); PLATELET COUNT 173 K/mm3 (130-400); RED BLOOD COUNT 3.17 M/mm3 (4.20-5.60); REDCELL DISTRIBUTION WIDTH-CV 17.3 % (11.5-14.5)
[2021-08-04 06:03] LABS: HEMATOCRIT 29.4 % (42.0-52.0); HEMOGLOBIN 9.1 g/dl (13.5-18.0); MEAN CORPUSCULAR HEMOGLOBIN 29 pg (27.0-31.0)
[2021-08-04 06:21] LABS: CALCIUM 7.8 mg/dL (8.4-10.2); CREATININE, serum 0.73 mg/dL (0.72-1.25); MAGNESIUM 1.9 mg/dL (1.6-2.6); PHOSPHOROUS 3.4 mg/dL (2.3-4.7); POTASSIUM 3.9 mmol/L (3.5-4.5)
--- NOTE | 2021-08-04 06:58 | NUR ---
SEDATION OFF AT THIS TIME FOR WEANING TRIAL. PT TOLERATING WELL AT THIS TIME. RESP RATE 18. BP 111/68. HR 97. SAT 95%.
--- NOTE | 2021-08-04 07:30 | NUR ---
REPORT RECEIVED FROM BALDO Lowry RN
--- NOTE | 2021-08-04 09:45 | NUR ---
DR. DONNELLY HERE TO SEE PATIENT AND SPEAK TO , MANOLO. HE WANTS SEDATION TO REMAIN OFF AND GIVE IVP IF NEEDED TO KEEP HIM CALM AND COMFORTABLE. PATIENT TO REMAIN ON WEANING TRIAL LONG HE CAN TOLERATE THEN BACK TO AC MODE ON VENT. GOOD WITH THIS PLAN.
--- NOTE | 2021-08-04 12:15 | NUR ---
PATIENT IS TACHYPNEIC WITH RR IN 40s AFTER WE TURN HIM. HE IS PLACED BACK IN AC MODE ON VENT AND CALMS DOWN ALMOST IMMEDIATELY.
--- NOTE | 2021-08-04 12:15 | NUR ---
AKOSUA TUBE GOMES REPLACED WITH NEW ONE W/O INCIDENT
--- NOTE | 2021-08-04 17:00 | NUR ---
PATIENT CONTINUES TO DO WELL. HE WAKES EASILY AND THEN GOES BACK TO SLEEP EASILY. HE DOES NOT APPEAR UNCOMFORTABLE. DR. FIGUEROA ORDERED FOR FIBER SUPPLEMENT TO BE ADDED TO REGIMEN. THIS HAS BEEN DELIVERED TO THE ROOM AND WILL GIVE FIBER BID ALONG WITH PROSOURCE. STOOLS REMAIN LOOSE FROM THE ILEOSTOMY.
--- NOTE | 2021-08-04 19:19 | NUR ---
REPORT GIVEN TO BALDO Lowry RN
[2021-08-05] VITALS (714 sets, daily range): BP systolic 100–153; BP diastolic 60–86; PULSE 90–136; TEMP 97.7–100.8; O2SAT 91–100
--- NOTE | 2021-08-05 04:00 | NUR ---
TUBE FEEDS PLACED ON HOLD AT THIS TIME.
--- NOTE | 2021-08-05 05:19 | NUR ---
PER DR DONNELLY'S NOTE, CPAP TRIAL WILL NOT BEGIN UNTIL 0700
--- NOTE | 2021-08-05 05:20 | NUR ---
RT NOT AVAILABLE AT THIS TIME
[2021-08-05 08:12] LABS: BASO % 0.1 % (0.0-2.0); EOS # 0.2 K/mm3 (0.0-0.7); EOS % 1.4 % (0-4.0); GRAN # 12.1 K/mm3 (1.4-6.5); GRAN % 81.6 % (42.2-75.2); HEMOGLOBIN 8.9 g/dl (13.5-18.0); LYMPH # 1.9 K/mm3 (1.2-3.4); LYMPH % 12.6 % (20.0-51.0); MEAN CELL VOLUME 93 fl (80.0-100.0); MEAN CORPUSCULAR HEMOGLOBIN 29 pg (27.0-31.0); MEAN CORPUSCULAR HGB CONC 31 g/dl (33.0-37.0); MEAN PLATELET VOLUME 12.8 fl (7.4-10.4); MONO # 0.6 K/mm3 (0.1-0.6); MONO % 3.8 % (1.7-9.3); PLATELET COUNT 195 K/mm3 (130-400); RED BLOOD COUNT 3.12 M/mm3 (4.20-5.60); REDCELL DISTRIBUTION WIDTH-CV 17.1 % (11.5-14.5)
[2021-08-05 08:13] LABS: HEMATOCRIT 29.1 % (42.0-52.0)
--- NOTE | 2021-08-05 10:03 | NUR ---
PATIENT CURRENTLY ON WEANING TRIAL. DR. DONNELLY DOES NOT FEEL THAT HE IS A GOOD CANDIDATE FOR EXTUBATION. UPDATE CALLED TO THE , MANOLO. IT IS EXPLAINED THAT HE WILL MOST LIKELY NEED A TRACH/PEG AND THEN MOVE TO [facility] FOR FURTHER REHAB AND WEANING. SHE HAS QUESTIONS, THEY ARE ANSWERED AND VERBALIZES UNDERSTANDING.
[2021-08-05 10:18] LABS: CALCIUM 8.1 mg/dL (8.4-10.2); CREATININE, serum 0.67 mg/dL (0.72-1.25); POTASSIUM 3.7 mmol/L (3.5-4.5)
[2021-08-05 11:07] LABS: ARTERIAL BLD GAS TCO2 CT 21.4; ARTERIAL BLOOD GAS BASE EXCESS -2.8 (-2-2); ARTERIAL BLOOD GAS HCO3 20.5 meq/L (22-26); ARTERIAL BLOOD GAS PCO2 29.5 mmHg (35-45); ARTERIAL BLOOD GAS PO2 97.8 mmHg (80-100); ARTERIAL BLOOD GAS pH 7.46 (7.35-7.45)
--- NOTE | 2021-08-05 12:23 | NUR ---
PATIENT PLACED BACK IN ASSIST CONTROL AT 1215 D/T PERSISTED TACHYPNEA AND LOW TIDAL VOLUMES EVEN WITH THIS RN COACHING THE PATIENT ON SLOW DEEP BREATHING. IT APPEARED IF THE PATIENT WAS BECOMING MORE TIRED THE WEAN TRIAL WENT ON. MIDDLEWARE DEVELOPER KARLI NOTIFIED OF THIS CHANGE.
--- NOTE | 2021-08-05 14:00 | NUR ---
DR. DONNELLY EXPRESSES THAT HE WANTS TO TRY ANOTHER WEANING TRIAL IN THE MORNING WITH TUBE FEEDS STOPPING AT 0500 AND SPONTANEOUS BREATHING TRIAL WILL BE STARTED AT 0700. AGREES WITH THIS PLAN.
--- NOTE | 2021-08-05 19:34 | NUR ---
REPORT GIVEN TO GANESH UMANA
[2021-08-06] VITALS (719 sets, daily range): BP systolic 114–123; BP diastolic 65–78; PULSE 94–132; TEMP 97.8–99.8; O2SAT 87–100
[2021-08-06 04:12] LABS: BASO % 0.2 % (0.0-2.0); EOS # 0.2 K/mm3 (0.0-0.7); EOS % 1.4 % (0-4.0); GRAN # 10.3 K/mm3 (1.4-6.5); GRAN % 80.2 % (42.2-75.2); LYMPH # 1.7 K/mm3 (1.2-3.4); LYMPH % 13.1 % (20.0-51.0); MEAN CELL VOLUME 92 fl (80.0-100.0); MEAN CORPUSCULAR HGB CONC 30 g/dl (33.0-37.0); MEAN PLATELET VOLUME 12.2 fl (7.4-10.4); MONO # 0.6 K/mm3 (0.1-0.6); MONO % 4.6 % (1.7-9.3); PLATELET COUNT 215 K/mm3 (130-400); RED BLOOD COUNT 3.03 M/mm3 (4.20-5.60); REDCELL DISTRIBUTION WIDTH-CV 16.6 % (11.5-14.5)
[2021-08-06 04:18] LABS: HEMATOCRIT 27.8 % (42.0-52.0); HEMOGLOBIN 8.4 g/dl (13.5-18.0); MEAN CORPUSCULAR HEMOGLOBIN 28 pg (27.0-31.0)
[2021-08-06 04:40] LABS: CALCIUM 8.1 mg/dL (8.4-10.2); CREATININE, serum 0.63 mg/dL (0.72-1.25); MAGNESIUM 1.9 mg/dL (1.6-2.6); PHOSPHOROUS 3.1 mg/dL (2.3-4.7); POTASSIUM 3.7 mmol/L (3.5-4.5)
--- NOTE | 2021-08-06 05:11 | NUR ---
PATIENT IS NOT ON ANY SEDATION AT THIS TIME, AWAKE AND RESPONSIVE. PATIENT PLACED ON CPAP OF 5, PEEP OF 5, 40% AND TOLERATING WELL. VT OF 350-450, HEART RATE MADE NO CHANGES, AND PATIENT IS STABLE
[2021-08-06 08:06] LABS: ARTERIAL BLD GAS O2 SATURATION 96.4 % (92-100); ARTERIAL BLD GAS TCO2 CT 22.2; ARTERIAL BLOOD GAS HCO3 21.3 meq/L (22-26); ARTERIAL BLOOD GAS PO2 90.4 mmHg (80-100)
--- NOTE | 2021-08-06 09:30 | NUR ---
Patient extubated this morning at approx 0900 with RT Vaishnavi and myself at the bedside and patient had no issues during tube removal. NG tube stayed in place, 58cm at the nare, and an Oxymask was placed running at 5 lpm. Patient maintained adequate O2 sats and vital signs remained stable.
[2021-08-06 09:56] LABS: ARTERIAL BLD GAS O2 SATURATION 97.4 % (92-100); ARTERIAL BLD GAS TCO2 CT 23.4; ARTERIAL BLOOD GAS BASE EXCESS -1.2 (-2-2); ARTERIAL BLOOD GAS HCO3 22.4 meq/L (22-26); ARTERIAL BLOOD GAS PCO2 33.5 mmHg (35-45); ARTERIAL BLOOD GAS PO2 100.2 mmHg (80-100); ARTERIAL BLOOD GAS pH 7.44 (7.35-7.45)
--- NOTE | 2021-08-06 10:11 | NUR ---
The patient was extubated this morning. SW to ask for OT to be ordered. SW to continue to monitor and will await therapy's recs.
[2021-08-06 19:56] LABS: ARTERIAL BLD GAS TCO2 CT 27.9; ARTERIAL BLOOD GAS BASE EXCESS 3.3 (-2-2); ARTERIAL BLOOD GAS HCO3 26.8 meq/L (22-26); ARTERIAL BLOOD GAS PCO2 36.9 mmHg (35-45); ARTERIAL BLOOD GAS PO2 85.3 mmHg (80-100); ARTERIAL BLOOD GAS pH 7.48 (7.35-7.45)
--- NOTE | 2021-08-06 22:30 | NUR ---
Patient's midline incision and ostomy dressings exchanged due to leakage from stoma. Patient noted to have two semi-scabbed blisters beneath ostomy wafer and one at its right edge. Midline incision itself has many open areas between ashley. Each area is approximately 1cm in width. Areas are pink and moist, however, some yellow/green crusty discharge is also noted. Per report received from GANESH Villarreal, open areas have been noted by nursing staff and surgery has been notified. Midline incision is covered with non-adherent and ABD pads, held in place with Mefix tape. Due to proximity of stoma in relation to abdominal site, this RN is concerned for potential contamination of wound. Ostomy wafer reinforced with tegaderm.
[2021-08-07] VITALS (616 sets, daily range): BP systolic 90–152; BP diastolic 57–92; PULSE 93–131; TEMP 97.6–99.1; O2SAT 86–100
[2021-08-07 05:37] LABS: ARTERIAL BLD GAS O2 SATURATION 96.3 % (92-100); ARTERIAL BLD GAS TCO2 CT 24.2; ARTERIAL BLOOD GAS BASE EXCESS -0.5 (-2-2); ARTERIAL BLOOD GAS HCO3 23.2 meq/L (22-26); ARTERIAL BLOOD GAS PCO2 34.6 mmHg (35-45); ARTERIAL BLOOD GAS PO2 83.8 mmHg (80-100); ARTERIAL BLOOD GAS pH 7.44 (7.35-7.45)
[2021-08-07 06:11] LABS: BASO % 0.3 % (0.0-2.0); EOS # 0.2 K/mm3 (0.0-0.7); EOS % 1.7 % (0-4.0); GRAN # 8.9 K/mm3 (1.4-6.5); GRAN % 77.7 % (42.2-75.2); LYMPH # 1.6 K/mm3 (1.2-3.4); LYMPH % 13.6 % (20.0-51.0); MEAN CELL VOLUME 92 fl (80.0-100.0); MEAN CORPUSCULAR HGB CONC 30 g/dl (33.0-37.0); MEAN PLATELET VOLUME 12.5 fl (7.4-10.4); MONO # 0.7 K/mm3 (0.1-0.6); MONO % 6.2 % (1.7-9.3); PLATELET COUNT 250 K/mm3 (130-400); RED BLOOD COUNT 3.09 M/mm3 (4.20-5.60); REDCELL DISTRIBUTION WIDTH-CV 16.3 % (11.5-14.5)
[2021-08-07 06:21] LABS: HEMATOCRIT 28.3 % (42.0-52.0); HEMOGLOBIN 8.6 g/dl (13.5-18.0); MEAN CORPUSCULAR HEMOGLOBIN 28 pg (27.0-31.0)
[2021-08-07 06:28] LABS: CALCIUM 9.1 mg/dL (8.4-10.2); CREATININE, serum 0.58 mg/dL (0.72-1.25); POTASSIUM 3.6 mmol/L (3.5-4.5)
--- NOTE | 2021-08-07 07:56 | NUR ---
Report received from GANESH Dinero; went in to look at midline abdominal incision which is open in between sutures. Concern is that ostomy wafer will pull away from weight of liquid/stool and if turned, stool will leak into openings. Will follow up with acting section chief surgical doctor.
--- NOTE | 2021-08-07 11:27 | NUR ---
PT is recommending post-acute rehab. PORFIRIO contacted the patient's , Tiffany, and discussed therapy's recommendation. Tiffany is in agreement to post-acute rehab. PORFIRIO informed Tiffany of the facilities around the [facility]. Tiffany was interested in [facility] and [facility]. PORFIRIO emailed a referral to Caridad at [facility]. PORFIRIO contacted and faxed a referral to Cara at [facility]. Awaiting screens. PORFIRIO was then notified that the doctor is wanting a referral sent to [facility]. PORFIRIO contacted the hospitalist and confirmed this. The hospitalist reports that the patient would be ready to discharge from here in 2-3 days. PORFIRIO contacted and updated the patient's , Tiffany. Tiffany is open to [facility] and states that she would prefer the location. PORFIRIO contacted and faxed a referral to Michele at [facility]. Awaiting screen.
--- NOTE | 2021-08-07 11:40 | NUR ---
CALLED AND SPOKE WITH DR. SPENCE ABOUT PATIENT'S MIDLINE ABD INCISION. REPORTED THAT IT WAS OPENING IN BETWEEN THE JAYSHREE, APPROX [address] SPENCE WANTED A KUB DONE AND SAID THAT HE HAD A PROCEDURE SCHEDULED AT 1300 AND WOULD BE BY TO SEE THE PATIENT BEFORE HE DOES THAT.
--- NOTE | 2021-08-07 18:00 | NUR ---
Dr. Lovelace called for updates on patients this afternoon and when reporting on 7, explained the stool coming of the ostomy was very liquid and that there was an increasing amount of stool coming out. Based on this information and the patient's recent history, patient was started on Flagyl. Will check with Dr. Lovelace tomorrow to see if any changes need to be made based on recent developments.
--- NOTE | 2021-08-07 19:00 | NUR ---
Received report from GANESH Villarreal. Patient to be taken to surgery within the next few minutes. Patient and family aware; consent obtained and signed.
--- NOTE | 2021-08-07 19:10 | NUR ---
Patient departs unit with surgical staff at this time.
--- NOTE | 2021-08-07 20:34 | NUR ---
Went into patient's room to empty ostomy bag, and discovered a large amount of fluid in the bag which had pulled the wafer away from the skin. Fluid had soaked through the abd pads covering his midline abd incision, as well as soaked through his gown and bedding. Initially it was thought the fluid was leaking from the ostomy site, however, it was found to be coming from the abd incision and Dr. Leos was immediately notified. Dr. Leos wanted patient to have an immediate CT scan of the abdomen; patient taken for CT and findings warranted emergent surgery.
--- NOTE | 2021-08-07 20:38 | NUR ---
Patient returns to ICU room 7. Patient is intubated and sedated. Patient is being ventilated via ambu bag upon arrival. Respiratory at bedside with ventilator. Initial vent settings are: rate 20, PEEP 5, FiO2 40%, tidal volume of 420. ET tube is located 25 at the teeth. NG tube in place, located 58 at the right nare. Isi, hospitalist, aware of patient's arrival and is at bedside. Propofol and fentanyl drips initiated for sedation. Two-point soft wrist restraints initiated for management of lines and tubes. Patient's abdominal midline incision is covered with an ABD bandage and medipore tape. It is clean, dry, and intact at this time. Ostomy is draining liquid green stool. Khuory catheter is draining clear, jax urine, with scant sediment present.
[2021-08-07 23:44] LABS: ARTERIAL BLD GAS O2 SATURATION 94.9 % (92-100); ARTERIAL BLD GAS TCO2 CT 28.9; ARTERIAL BLOOD GAS BASE EXCESS 4.1 (-2-2); ARTERIAL BLOOD GAS HCO3 27.8 meq/L (22-26); ARTERIAL BLOOD GAS PCO2 38.3 mmHg (35-45); ARTERIAL BLOOD GAS PO2 73.2 mmHg (80-100); ARTERIAL BLOOD GAS pH 7.48 (7.35-7.45)
[2021-08-08] VITALS (61 sets, daily range): BP systolic 81–129; BP diastolic 52–73; PULSE 84–133; TEMP 98.2–99.7; O2SAT 95–100
--- NOTE | 2021-08-08 05:29 | NUR ---
Patient intubated less than 12 hours ago. No sedation vacation performed at this time.
[2021-08-08 05:38] LABS: ALBUMIN 1.8 gm/dL (3.4-4.8); CALCIUM 8.3 mg/dL (8.4-10.2); CREATININE, serum 0.58 mg/dL (0.72-1.25); MAGNESIUM 1.8 mg/dL (1.6-2.6); PHOSPHOROUS 3.5 mg/dL (2.3-4.7); POTASSIUM 3.7 mmol/L (3.5-4.5); TOTAL PROTEIN 5.2 gm/dL (6.2-8.1)
[2021-08-08 06:28] LABS: BASO % 0.3 % (0.0-2.0); EOS # 0.2 K/mm3 (0.0-0.7); EOS % 1.2 % (0-4.0); GRAN # 10.6 K/mm3 (1.4-6.5); GRAN % 78.5 % (42.2-75.2); LYMPH # 1.8 K/mm3 (1.2-3.4); MEAN CELL VOLUME 92 fl (80.0-100.0); MEAN CORPUSCULAR HGB CONC 31 g/dl (33.0-37.0); MEAN PLATELET VOLUME 12.6 fl (7.4-10.4); MONO # 0.9 K/mm3 (0.1-0.6); MONO % 6.4 % (1.7-9.3); PLATELET COUNT 346 K/mm3 (130-400); RED BLOOD COUNT 3.08 M/mm3 (4.20-5.60); REDCELL DISTRIBUTION WIDTH-CV 16.2 % (11.5-14.5)
[2021-08-08 06:29] LABS: HEMATOCRIT 28.2 % (42.0-52.0); HEMOGLOBIN 8.6 g/dl (13.5-18.0); MEAN CORPUSCULAR HEMOGLOBIN 28 pg (27.0-31.0)
[2021-08-08 13:17] LABS: ARTERIAL BLD GAS O2 SATURATION 97.3 % (92-100); ARTERIAL BLD GAS TCO2 CT 29.2; ARTERIAL BLOOD GAS PCO2 39.7 mmHg (35-45); ARTERIAL BLOOD GAS PO2 103.6 mmHg (80-100); ARTERIAL BLOOD GAS pH 7.47 (7.35-7.45)
--- NOTE | 2021-08-08 18:19 | NUR ---
DID NOT DO SEDATION VACATION THIS AFTERNOON, PATIENT'S HEART RATE INCREASED BACK INTO THE 130S; SEDATION WAS INCREASED THERE WAS CONCERN THAT HIS TACHYCARDIA WAS DUE TO PAIN FROM LAST NIGHT'S SURGERY.
[2021-08-09] VITALS (259 sets, daily range): BP systolic 83–101; BP diastolic 50–64; PULSE 87–119; TEMP 97.8–99.1; O2SAT 91–99
[2021-08-09 04:06] LABS: ARTERIAL BLD GAS O2 SATURATION 95.9 % (92-100); ARTERIAL BLD GAS TCO2 CT 28.5; ARTERIAL BLOOD GAS BASE EXCESS 3.5 (-2-2); ARTERIAL BLOOD GAS HCO3 27.3 meq/L (22-26); ARTERIAL BLOOD GAS PCO2 38.3 mmHg (35-45); ARTERIAL BLOOD GAS PO2 84.5 mmHg (80-100); ARTERIAL BLOOD GAS pH 7.47 (7.35-7.45)
[2021-08-09 04:59] LABS: BILIRUBIN,DIRECT 0.8 mg/dL (0.0-0.5); BILIRUBIN,TOTAL 1.1 mg/dL (0.2-1.2)
[2021-08-09 05:47] LABS: BASO % 0.3 % (0.0-2.0); EOS # 0.3 K/mm3 (0.0-0.7); EOS % 2.6 % (0-4.0); GRAN # 7.2 K/mm3 (1.4-6.5); GRAN % 73.5 % (42.2-75.2); LYMPH # 1.5 K/mm3 (1.2-3.4); LYMPH % 15.3 % (20.0-51.0); MEAN CELL VOLUME 93 fl (80.0-100.0); MEAN CORPUSCULAR HGB CONC 31 g/dl (33.0-37.0); MEAN PLATELET VOLUME 12.5 fl (7.4-10.4); MONO # 0.7 K/mm3 (0.1-0.6); MONO % 7.5 % (1.7-9.3); PLATELET COUNT 340 K/mm3 (130-400); RED BLOOD COUNT 2.78 M/mm3 (4.20-5.60)
[2021-08-09 05:50] LABS: HEMATOCRIT 25.9 % (42.0-52.0); HEMOGLOBIN 7.9 g/dl (13.5-18.0); MEAN CORPUSCULAR HEMOGLOBIN 28 pg (27.0-31.0)
[2021-08-09 06:00] LABS: CALCIUM 8.1 mg/dL (8.4-10.2); CREATININE, serum 0.62 mg/dL (0.72-1.25); POTASSIUM 3.8 mmol/L (3.5-4.5)
--- NOTE | 2021-08-09 07:30 | NUR ---
BEDSIDE SHIFT REPORT RECEIVED FROM GANESH BLAND. PATIENT IS STILL SEDATED AND INTUBATED WITH TRIPLE LUMEN CATHETER IN RIGHT INTERNAL JUGULAR STILL IN PLACE. PATIENT IS CURRENTLY TACHYCARDIC AND HYPOTENSIVE BUT OTHERWISE STABLE. MERRITT CATHETER AND COLOSTOMY IN PLACE, PATENT AND DRAINING TO GRAVITY. ABDOMINAL DRESSING AND STERILE STRIPS ON RIGHT KNEE IN PLACE. WILL ASSESS FURTHER.
--- NOTE | 2021-08-09 07:44 | NUR ---
RECEIVED CALL FROM [employer] REGARDING DRIP RATES. BROUGHT TO MY ATTENTION THE NEED FOR GASTRIC ULCER PROPHYLAXIS. THIS NURSE WILL LOOK INTO IT.
--- NOTE | 2021-08-09 08:20 | NUR ---
DR. DONNELLY AT BEDSIDE. DISCUSSED PLAN OF CARE. ORDERS RECEIVED.
--- NOTE | 2021-08-09 08:59 | NUR ---
DR. SPENCE TO SEE PATIENT. STATED HE WOULD PLACE DRESSING CHANGE ORDERS IN CHART. NO CONCERNS AT THIS TIME.
--- NOTE | 2021-08-09 10:34 | NUR ---
Dealer Analyst contacted Michele at [facility] and faxed clinical updates.
--- NOTE | 2021-08-09 11:50 | NUR ---
MONICA ONEIL STATED SHE PLACED ORDERS TO INCREASE TUBEFEEDING. RECEIVED.
[2021-08-09 13:05] LABS: ARTERIAL BLD GAS O2 SATURATION 96.4 % (92-100); ARTERIAL BLOOD GAS BASE EXCESS 2.4 (-2-2); ARTERIAL BLOOD GAS HCO3 26.8 meq/L (22-26); ARTERIAL BLOOD GAS PCO2 40.5 mmHg (35-45); ARTERIAL BLOOD GAS PO2 88.7 mmHg (80-100); ARTERIAL BLOOD GAS pH 7.44 (7.35-7.45)
--- NOTE | 2021-08-09 17:00 | NUR ---
NO SEDATION VACATION TODAY. PATIENT TOLERATING AND FOLLOWING COMMANDS.
[2021-08-10] VITALS (718 sets, daily range): BP systolic 85–124; BP diastolic 59–75; PULSE 93–121; TEMP 97.4–99.4; O2SAT 94–100
--- NOTE | 2021-08-10 | NUR ---
ABD DRESSING CHANGED. NO DRAINAGE NOTED, INC WELL APPROXIMATED. MEDPORE DRESSING APPLIED. 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 PT ALERT BUT SEDATED TO COMFORT, APPEARS TO REST WELL IN BED. TURNING Q2HRS. WILL CONTINUE TO MONITOR.
[2021-08-10 03:27] LABS: ARTERIAL BLD GAS O2 SATURATION 97.6 % (92-100); ARTERIAL BLD GAS TCO2 CT 28.9; ARTERIAL BLOOD GAS BASE EXCESS 2.9 (-2-2); ARTERIAL BLOOD GAS HCO3 27.6 meq/L (22-26); ARTERIAL BLOOD GAS PO2 108.6 mmHg (80-100); ARTERIAL BLOOD GAS pH 7.43 (7.35-7.45)
[2021-08-10 05:49] LABS: CALCIUM 7.9 mg/dL (8.4-10.2); CREATININE, serum 0.61 mg/dL (0.72-1.25); MAGNESIUM 1.9 mg/dL (1.6-2.6); PHOSPHOROUS 3.4 mg/dL (2.3-4.7); POTASSIUM 3.9 mmol/L (3.5-4.5)
--- NOTE | 2021-08-10 06:00 | NUR ---
PT DOING WELL WITH SEDATION VACATION. ALERT, FOLLOWING COMMANDS. NODDING TO YES/NO QUESTIONS. DENIES PAIN. VENT CHANGES MADE PER RT. WILL CONTINUE TO MONITOR.
--- NOTE | 2021-08-10 07:32 | NUR ---
RECEIVED BEDSIDE SHIFT REPORT FROM GANESH BLAND. PATIENT IN BED RESTING WITH EYES OPEN. HAS BEEN ON A CONTINUED SEDATION VACATION THIS A.M. VSS. SEE GTT TITRATION FLOWSHEET. STILL ON LIGHT SEDATION AND INTUBATED. RIGHT INTERNAL JUGULAR TRIPLE LUMEN CATHETER AND MERRITT CATHETER STILL IN PLACE, PATENT.
--- NOTE | 2021-08-10 08:20 | NUR ---
DR. DONNELLY AT BEDSIDE. DISCUSSED PLAN OF CARE AND NEED FOR DAILY LAB WORK TO KEEP TRACK OF POTASSIUM. PLAN FOR EXTUBATION TOMORROW. PATIENT NOT CURRENTLY ON ANY SEDATION.
--- NOTE | 2021-08-10 08:48 | NUR ---
DR. SPENCE AT BEDSIDE TO ASSESS PATIENT. STATED THAT PATIENT CAN ADVANCE DIET TOLERATED BUT IF PLANNING TO EXTUBATE, ALLOWED TO LEAVE TUBE FEEDING RATE IS. THIS NURSE STATED THAT SHE WOULD DISCUSS WITH MONICA ONEIL.
--- NOTE | 2021-08-10 10:00 | NUR ---
SPOKE TO THAD WITH DIETARY REGARDING DR. SPENCE'S SUGGESTION TO INCREASE TUBE FEEDING RATE. SHE STATED SHE WOULD TALK TO DR. DONNELLY AND KEEP ME INFORMED ABOUT WHAT ORDERS SHE WOULD PLACE.
--- NOTE | 2021-08-10 11:13 | NUR ---
PORFIRIO staffed with the hositalist. The hospitalist states that they may try and extubate the patient tomorrow. PORFIRIO notified Michele at [facility]. Michele reports that he will touch base with PORFIRIO on Friday about the patient's status.
--- NOTE | 2021-08-10 14:42 | NUR ---
RECEIVED CALL FROM THAD IN DIETARY REGARDING INCREASE IN TUBE FEEDS. STATED SHE WILL INCREASE AND PLACE THE ORDERS ACCORDINGLY.
[2021-08-10 15:44] LABS: HEMATOCRIT 26.6 % (42.0-52.0); HEMOGLOBIN 7.7 g/dl (13.5-18.0)
--- NOTE | 2021-08-10 17:00 | NUR ---
PATIENT WAS OFF SEDATION UNTIL HE REQUESTED TO BE PLACED BACK ON TO SLEEP AND RELAX AT 1534. TOLERATING WELL.
[2021-08-11] VITALS (285 sets, daily range): BP systolic 113–145; BP diastolic 64–94; PULSE 93–121; TEMP 98.4–100.6; O2SAT 89–99
[2021-08-11 03:43] LABS: ARTERIAL BLD GAS O2 SATURATION 95.6 % (92-100); ARTERIAL BLD GAS TCO2 CT 24.6; ARTERIAL BLOOD GAS BASE EXCESS -0.2 (-2-2); ARTERIAL BLOOD GAS HCO3 23.5 meq/L (22-26); ARTERIAL BLOOD GAS PCO2 33.9 mmHg (35-45); ARTERIAL BLOOD GAS PO2 82.4 mmHg (80-100); ARTERIAL BLOOD GAS pH 7.46 (7.35-7.45)
[2021-08-11 05:37] LABS: BASO % 0.1 % (0.0-2.0); EOS # 0.2 K/mm3 (0.0-0.7); EOS % 2.8 % (0-4.0); GRAN % 75.6 % (42.2-75.2); LYMPH # 1.1 K/mm3 (1.2-3.4); LYMPH % 13.2 % (20.0-51.0); MEAN CELL VOLUME 94 fl (80.0-100.0); MEAN CORPUSCULAR HGB CONC 30 g/dl (33.0-37.0); MEAN PLATELET VOLUME 11.5 fl (7.4-10.4); MONO # 0.6 K/mm3 (0.1-0.6); MONO % 6.9 % (1.7-9.3); PLATELET COUNT 297 K/mm3 (130-400); REDCELL DISTRIBUTION WIDTH-CV 15.8 % (11.5-14.5)
[2021-08-11 05:45] LABS: HEMATOCRIT 24.4 % (42.0-52.0); HEMOGLOBIN 7.3 g/dl (13.5-18.0); MEAN CORPUSCULAR HEMOGLOBIN 28 pg (27.0-31.0)
--- NOTE | 2021-08-11 05:59 | NUR ---
SEDATION STOPPED THIS MORNING AT 0200 FOR WEANING TRIAL AT 0600 PER NURSING ORDERS
[2021-08-11 06:11] LABS: ALBUMIN 1.7 gm/dL (3.4-4.8); BILIRUBIN,TOTAL 0.7 mg/dL (0.2-1.2); CALCIUM 8.5 mg/dL (8.4-10.2); CREATININE, serum 0.57 mg/dL (0.72-1.25); POTASSIUM 4.1 mmol/L (3.5-4.5); TOTAL PROTEIN 5.3 gm/dL (6.2-8.1)
[2021-08-11 11:04] LABS: ARTERIAL BLD GAS O2 SATURATION 97.3 % (92-100); ARTERIAL BLD GAS TCO2 CT 28.1; ARTERIAL BLOOD GAS BASE EXCESS 2.9 (-2-2); ARTERIAL BLOOD GAS HCO3 26.9 meq/L (22-26); ARTERIAL BLOOD GAS PCO2 38.9 mmHg (35-45); ARTERIAL BLOOD GAS pH 7.46 (7.35-7.45)
--- NOTE | 2021-08-11 11:49 | NUR ---
Pt extubated to 5L OM then quickly proceeded to 2L NC Pt alert and oriented to hospital course Pt denies pain while resting, soreness is present during ROM of right knee Pt's Tiffany updated and plans to visit later this afternoon Call light in reach for pt, self ROM of arms/hands and ankles being performed Oral and facial care provided. Pt denies any further needs
--- NOTE | 2021-08-11 12:02 | NUR ---
pt extubated to nc @ 2 lpm. spo2 99% pt resting comforably in bed.
[2021-08-12] VITALS (183 sets, daily range): BP systolic 109–139; BP diastolic 65–97; PULSE 88–125; TEMP 98.5–99; O2SAT 78–100
--- NOTE | 2021-08-12 00:34 | NUR ---
PT HAS BEEN UNCOMFORTABLE IN BED SINCE SHIFT BEGAN. HAS BEEN REPOSITIONED ABOUT EVERY HOUR OR LESS, INCLUDING ALL THE WAY TO LEFT SIDE, OFF BACK COMPLETELY. RN HAS NOT BEEN ABLE TO FIND A COMFORTABLE POSITION FOR PT, BUT FOLLOWING REQUESTS TO TRY NEW POSITIONS. CALL TO FRANK SALAMANCA, AT 2250 AND RECEIVED ORDER FOR MORPHINE. 1 MG IV GIVEN AT 2250, (MEDITECH DOWN AT THE TIME) NO SIGNIFICANT DIFFERENCE MADE FOR PT'S COMFORT. TYLENOL ALSO GIVEN PREVIOUSLY. WILL CONTINUE TO ADJUST PT PER REQUEST, AT LEAST EVERY 2 HOURS. STAGE 2 DEEP PRESSURE INJURY NOTED AT SACRUM, RIGHT SIDE WITH BLISTERED AREA AND LEFT SIDE SMALL OPEN AREA, ONE LAYER OF SKIN OPEN, APPEARS LIKE RUPTURED BLISTER. PT AWARE AND UNDERSTANDS NEED TO BE OFF BACK MUCH POSSIBLE. WILL CONTINUE TO MONITOR.
--- NOTE | 2021-08-12 04:00 | NUR ---
PT BATHED, CENTRAL LINE DRESSING CHANGED, AND ABD DRSG CHANGED. OLD DRESSING WITH MINIMAL DRAINAGE. PT CONTINUES TO BE A BIT RESTLESS DUE TO DISCOMFORT. DENIES PAIN, MORE OVERALL DISCOMFORT. GIVING ICE CHIPS ONE AT A TIME, AND CONTINUING TO POSITION PER PREFERENCE.
[2021-08-12 05:09] LABS: BASO % 0.2 % (0.0-2.0); EOS # 0.2 K/mm3 (0.0-0.7); EOS % 2.1 % (0-4.0); GRAN # 6.5 K/mm3 (1.4-6.5); GRAN % 75.5 % (42.2-75.2); LYMPH # 1.2 K/mm3 (1.2-3.4); LYMPH % 14.1 % (20.0-51.0); MEAN CELL VOLUME 93 fl (80.0-100.0); MEAN CORPUSCULAR HGB CONC 30 g/dl (33.0-37.0); MEAN PLATELET VOLUME 11.3 fl (7.4-10.4); MONO # 0.6 K/mm3 (0.1-0.6); MONO % 6.7 % (1.7-9.3); PLATELET COUNT 317 K/mm3 (130-400); RED BLOOD COUNT 2.59 M/mm3 (4.20-5.60); REDCELL DISTRIBUTION WIDTH-CV 15.7 % (11.5-14.5)
[2021-08-12 05:15] LABS: HEMATOCRIT 24.1 % (42.0-52.0); HEMOGLOBIN 7.3 g/dl (13.5-18.0); MEAN CORPUSCULAR HEMOGLOBIN 28 pg (27.0-31.0)
[2021-08-12 07:10] LABS: CALCIUM 8.1 mg/dL (8.4-10.2); CREATININE, serum 0.51 mg/dL (0.72-1.25); POTASSIUM 3.9 mmol/L (3.5-4.5)
--- NOTE | 2021-08-12 07:44 | NUR ---
REPORT CALLED TO RN ON MEDICAL FLOOR TAKING PT TO ROOM 316. PT MOVED VIA MEDICAL BED, TOLERATED WELL.
--- NOTE | 2021-08-12 08:57 | NUR ---
Pt assessment complete. Pt arrived to the medical floor at this time. He is alert and oriented. Complaining of pain to bottom, requesting ice chips at this time. Egg shell mattress placed on bed for comfort. Ice chips provided using aspiration precautions. NG tube with continuous feedings running into R nare. Pt currently on 2L O2 via NC. Breathing is even and unlabored. Khoury DD. Incision to midline abdomen CDI. Ostomy bag draining liquid stool. RIJ flushes without issues, blood return only to brown lumen. Pt repositioned with pillows. Pt denies any further needs at this time. Call light within reach.
--- NOTE | 2021-08-12 12:00 | NUR ---
Repositioning provided. Residual checked to NG, 70mls of johnson/green liquid present. Tube feedings restarted. Ice chips provided. Call light within reach.
--- NOTE | 2021-08-12 18:25 | NUR ---
Pt appears to be very wore out, very weak. He attempted to feed himself ice chips and use the swabs for mouth but was unsuccessful. Pt complains of a very dry mouth. Reports pain to bottom, mepilex placed. Repositioning provided through the day. Ostomy emptied. Midline incision dressing CDI. Khoury DD. Tube feedings infusing per protocol.
--- NOTE | 2021-08-12 19:30 | NUR ---
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 Assessment complete. A&Ox4. Denies shortness of breath/nausea/pain. VS stable. Currently NPO. NG tube to right nare with feedings infusing at 45ml/hr. O2@2L/NC. Ostomy with brownish liquid output. Khoury cath to DD. Right IJ central line flushes without difficulty. Dressing to midline [id number]. Plan of care discussed for this shift to include meds/repositioning/dressing change/calling for questions/concerns. Verbalizes understanding/denies needs. Call light in reach. Will monitor.
--- NOTE | 2021-08-13 00:20 | NUR ---
Very restless so far this shift yelling out for help. States he wants the NG tub removed. Explained that testing needed to be done to make sure he could swallow okay before we could start a diet. Verbalizes understanding but remains agitated. Dressing to midline abdomen changed at this time with ABD/Medipore tape. Tolerated well.
[2021-08-13 03:47] VITALS: BP 142/78; PULSE 117; TEMP 100.5
--- NOTE | 2021-08-13 04:30 | NUR ---
Residual checked at this time-45mls johnson fluid. Tylenol given per dr order for fever. Denies pain. Call light in reach. Will monitor.
[2021-08-13 07:00] LABS: BASO % 0.3 % (0.0-2.0); EOS # 0.2 K/mm3 (0.0-0.7); EOS % 1.9 % (0-4.0); GRAN # 7.2 K/mm3 (1.4-6.5); GRAN % 70.9 % (42.2-75.2); LYMPH # 1.8 K/mm3 (1.2-3.4); LYMPH % 17.6 % (20.0-51.0); MEAN CELL VOLUME 96 fl (80.0-100.0); MEAN CORPUSCULAR HGB CONC 29 g/dl (33.0-37.0); MEAN PLATELET VOLUME 11.6 fl (7.4-10.4); MONO # 0.8 K/mm3 (0.1-0.6); MONO % 7.4 % (1.7-9.3); PLATELET COUNT 360 K/mm3 (130-400); RED BLOOD COUNT 2.48 M/mm3 (4.20-5.60); REDCELL DISTRIBUTION WIDTH-CV 15.7 % (11.5-14.5)
[2021-08-13 07:05] LABS: CALCIUM 8.2 mg/dL (8.4-10.2); CREATININE, serum 0.53 mg/dL (0.72-1.25); MAGNESIUM 1.8 mg/dL (1.6-2.6); PHOSPHOROUS 2.9 mg/dL (2.3-4.7); POTASSIUM 3.8 mmol/L (3.5-4.5)
[2021-08-13 07:06] LABS: HEMATOCRIT 23.8 % (42.0-52.0); HEMOGLOBIN 6.9 g/dl (13.5-18.0); MEAN CORPUSCULAR HEMOGLOBIN 28 pg (27.0-31.0)
--- NOTE | 2021-08-13 07:27 | NUR ---
Bedside shift report complete with GANESH Kat. Pt. requesting water at this time, GANESH Kat reports pt. should be NPO until speech therapy assesses patient today. Shey reports pt. coughed with a small amount of ice chips. Call received from lab, new critical result available for H&H. FRANK Powell notified. No new orders at this time.
[2021-08-13 07:54] VITALS: BP 144/79; PULSE 122; TEMP 98.4
[2021-08-13 12:15] VITALS: BP 130/75; PULSE 131; TEMP 98.5
--- NOTE | 2021-08-13 12:29 | NUR ---
Pt.'s HR elevated, 130 bmp w/ vital sign checks. FRANK Powell aware. FRANK Powell reports plan for CT of chest to check for PE. Plan also is for pt. to get a thoracentesis of left lung, FRANK Powell unsure if thoracentesis will be today or tomorrow. Pt. working with speech therapy at this time. Pt. has been repositioned throughout the shift, Q2 hours with pillows alternating left and right side.
--- NOTE | 2021-08-13 12:59 | NUR ---
Juliet from speech therapy assessed pt. and the pt. can now have honey thick liquids as well as pureed foods. FRANK Powell notified.
--- NOTE | 2021-08-13 14:38 | NUR ---
order worker faxed clinical updates to Michele at [facility]. Anticipated dc tomorrow 08/14.
[2021-08-13 16:23] VITALS: BP 134/79; PULSE 132; TEMP 98.8
--- NOTE | 2021-08-13 17:58 | NUR ---
Pt. has had about 5ml of residual each Q4hr check. Pt. is now on puree and honey thick diet. Pt. is currently trying pureed food and honey thick drink. Pt. reports he is not very hungry but trying to take in PO. Frequent positioning throught the day. Pt. was given morphine x2 with good effect today.
--- NOTE | 2021-08-13 20:00 | NUR ---
Bedside shift report received, assumed care for computer architect. A&Ox4. Denies pain/nausea/shortness of breath. NG to right nare at 54cm-tube feed infusing at 60ml/hr. Residuals checked-10mls johnson fluid. Dressing to midline abdomen changed-ABDs/medipore tape. Brown liquid stool to colostomy bag. Assisted with honey thick iced tea. Tolerated well. Noted to have +2 edema to bilat lower ext. Right knee with healing TK incision site. Plan of care discussed for this shift to include meds/calling for questions/concerns/repositioning. Verbalizes understanding. Call light in reach. Will monitor.
[2021-08-13 20:44] VITALS: BP 136/72; PULSE 131; TEMP 100.8
--- NOTE | 2021-08-13 21:00 | NUR ---
Report from PCT of temp of 100.8 oral. Also starting to get a little more tachycardic. Face is flushed and patient states he is hot. Removed blankets and adjusted air in room. Tylenol given per dr order. Will monitor.
[2021-08-13 22:30] VITALS: TEMP 98.8
[2021-08-14] VITALS (7 sets, daily range): BP systolic 131–154; BP diastolic 79–95; PULSE 121–132; TEMP 97.6–100.1
--- NOTE | 2021-08-14 02:28 | NUR ---
C/O back pain-rating pain 8/10 on pain scale-described as constant throbbing. Morphine given per dr order.
--- NOTE | 2021-08-14 05:19 | NUR ---
Rested well after morphine. Has been repositioned Q2H. Residuals less than 10mls each check. Tolerating PO. Dressing was changed. Labs drawn from central line brown port. All ports flush well with only blood return from the brown and blue. Was much more alert and conversational this shift. Tube feeds continue to right nare NG without difficulty at 60mls/hr. Urine output has been better and not as dark in color. Ostomy with adequate output-brown liquid. Denies current needs. Call light in reach. Will monitor.
--- NOTE | 2021-08-14 06:48 | NUR ---
Bedside shift change complete w/ GANESH Kat. Pt. resting in bed and reports he is feeling OK. Pt. requesting honey thick iced tea. Pt. denies other needs. Call light and belongings in reach.
[2021-08-14 06:50] LABS: MEAN CELL VOLUME 94 fl (80.0-100.0); MEAN CORPUSCULAR HGB CONC 29 g/dl (33.0-37.0); MEAN PLATELET VOLUME 11.6 fl (7.4-10.4); PLATELET COUNT 404 K/mm3 (130-400); RED BLOOD COUNT 2.55 M/mm3 (4.20-5.60); REDCELL DISTRIBUTION WIDTH-CV 15.8 % (11.5-14.5)
[2021-08-14 06:54] LABS: MEAN CORPUSCULAR HEMOGLOBIN 27 pg (27.0-31.0)
[2021-08-14 07:05] LABS: CREATININE, serum 0.55 mg/dL (0.72-1.25)
[2021-08-14 08:00] LABS: BAND 1 % (0-10); EOSINOPHIL 1 % (0-4); LYMPHOCYTE 18 % (20.0-51.0); NEUTROPHILS 77 % (42.0-75.2); PLATELET ESTIMATE INCREASED (NORMAL)
[2021-08-14 08:01] LABS: ANISOCYTOSIS 1+; HYPOCHROMIA 1+; MICROCYTOSIS 1+
--- NOTE | 2021-08-14 08:55 | NUR ---
Pt. progressing w/ plan of care. Tube feeding changed per protocol. Pt. denies pain at this time. Pt. was able to drink a whole cup of honey thick iced tea this am with no coughing. Assessment complete. Speech therapist Juliet in pt.'s room at this time. Warm blanket provided per pt. request. Pt. denies further needs at this time. Call light and belongings in reach.
--- NOTE | 2021-08-14 10:50 | NUR ---
Primary care nurse visited with Dr. Pacheco and he agreed with PICC placement.
--- NOTE | 2021-08-14 11:58 | NUR ---
Pt.'s HR is elevated in the 140's. FRANK Powell made aware. Pt.'s believes pt. has a lot of anxiety. Plan for this RN to ask pt. if he would benefit from anxiety medication and let FRANK Powell know.
--- NOTE | 2021-08-14 15:52 | NUR ---
The patient is to discharge today, 08/14, to [facility] in [place]. Transportation was scheduled at 1700, via [facility]. PORFIRIO informed the patient, his RN, and the patient's (Tiffany) of the time. They were all agreeable to the time. PORFIRIO presented the EMS Consent Form to the patient. The patient gave PORFIRIO approval to sign the form on his behalf. No additional needs at this time.
--- NOTE | 2021-08-14 16:00 | NUR ---
RT IJ removed. Sterile technique used. Sutures not intact. Catheter tip intact. Patient tolerated well. 4x4 qand tegederm applied. 15 minutes held pressure by RN. No further needs expressd. Call light within reach
[2021-08-14 16:12] LABS: PLEURAL FLUID RBC 1000 /mm3 (0-0); PLEURAL FLUID WBC 458 /mm3
[2021-08-14 16:14] LABS: PLEURAL FLUID APPEARANCE HAZY; PLEURAL FLUID COLOR YELLOW
--- NOTE | 2021-08-14 17:19 | NUR ---
Nursing staff assisted with transfering patient onto the stretcher with EMS. Discharge packet with EMS. NG tube clamped. Personal belongings with the patient. No further needs expressed. Nurse attempted to call SNF with report.
[2021-08-14 23:07] LABS: BODY FLUID PH (AMS) 8 (())
== END 2021-08-14 17:15 | DRG 853 ==
LOC: COL.ER 17:06 → MEDICAL 20:19 → ICU 20:19 → MEDICAL 08-12 07:38
PROVIDERS: Emergency Medicine; Internal Medicine; Internal Medicine Nephrology; Internal Medicine Pulmonary Disease; Internal Medicine Sleep Medicine; Nurse Practitioner; Nurse Practitioner Family; Physician Assistant; Student in an Organized Health Care Education/Training Program; Surgery; ADMIT Internal Medicine
PROC: 5A1955Z Respiratory Ventilation, Greater than 96 Consecutive Hours (ICD-10-PCS; 2021-07-27)
PROC: 0BH17EZ Insertion of Endotracheal Airway into Trachea, Via Natural or Artificial Opening (ICD-10-PCS; 2021-07-27)
PROC: 0DBN0ZZ Excision of Sigmoid Colon, Open Approach (ICD-10-PCS; principal; 2021-07-29)
PROC: 0JB80ZZ Excision of Abdomen Subcutaneous Tissue and Fascia, Open Approach (ICD-10-PCS; 2021-08-07)
PROC: 02HV33Z Insertion of Infusion Device into Superior Vena Cava, Percutaneous Approach (ICD-10-PCS; 2021-08-14)
DX: A41.9 Sepsis, unspecified organism (principal); J96.01 Acute respiratory failure with hypoxia; R65.21 Severe sepsis with septic shock; K65.9 Peritonitis, unspecified; N17.9 Acute kidney failure, unspecified; E87.2 Acidosis; A04.72 Enterocolitis due to Clostridium difficile, not specified as recurrent; D62 Acute posthemorrhagic anemia; E87.0 Hyperosmolality and hypernatremia; J90 Pleural effusion, not elsewhere classified; K56.7 Ileus, unspecified; T81.30XA Disruption of wound, unspecified, initial encounter; Z96.651 Presence of right artificial knee joint; I10 Essential (primary) hypertension; E78.5 Hyperlipidemia, unspecified; R73.9 Hyperglycemia, unspecified; T38.0X5A Adverse effect of glucocorticoids and synthetic analogues, initial encounter; E87.70 Fluid overload, unspecified; E87.8 Other disorders of electrolyte and fluid balance, not elsewhere classified; N50.89 Other specified disorders of the male genital organs; F41.9 Anxiety disorder, unspecified; Z85.46 Personal history of malignant neoplasm of prostate; Z87.442 Personal history of urinary calculi
CPT/HCPCS: 99223-AI; 99233-AI; 99239; A4217; A4314; C1751; C1892; C9113; J0330; J0360; J0610; J0692; J0696; J1170; J1450; J1644; J1720; J1815; J1940; J2060; J2250; J2270; J2370; J2405; J2543; J2704; J3010; J3475; J3480; J7030; J7050; J7060; J7120; J7131; P9016; P9047; Q9967

== ENCOUNTER → 2021-10-04 | Outpatient (CLI) | payer MEDICARE, OTHER ==
[~2021-10-04] MED LIST: LIPITOR 40MG TA40 MG PO; PRINIVIL20 MG PO; XARELTO10 MG PO
== END ==
LOC: COL.RAD 10:45
DX: R11.0 Nausea (principal); Z90.49 Acquired absence of other specified parts of digestive tract

== ENCOUNTER → 2021-10-18 | Outpatient (CLI) | payer MEDICARE, OTHER | LOC: COL.RAD 12:40 | DX: R41.82 Altered mental status, unspecified (principal) | CPT/HCPCS: A9575 ==

== ENCOUNTER → 2021-11-02 | Outpatient (CLI) | payer MEDICARE, OTHER | LOC: COL.CARD 08:00 | DX: R00.0 Tachycardia, unspecified (principal); R00.2 Palpitations ==

== ENCOUNTER 2021-11-23 14:27 | Inpatient (IN) | payer MEDICARE, OTHER ==
[~2021-11-23] VITALS: Ht 175.3 cm; Wt 87.6 kg
[2021-11-23 15:36] LABS: BASO % 0.3 % (0.0-2.0); EOS % 0.2 % (0.0-4.0); GRAN # 8.7 K/mm3 (1.4-6.5); GRAN % 83.5 % (42.2-75.2); HEMOGLOBIN 10.9 g/dl (13.5-18.0); LYMPH # 0.8 K/mm3 (1.2-3.4); LYMPH % 7.3 % (20.0-51.0); MEAN CELL VOLUME 80 fl (80.0-100.0); MEAN CORPUSCULAR HEMOGLOBIN 25 pg (27-31); MEAN CORPUSCULAR HGB CONC 31 g/dl (33.0-37.0); MEAN PLATELET VOLUME 10.6 fl (7.4-10.4); MONO # 0.8 K/mm3 (0.1-0.6); MONO % 7.9 % (1.7-9.3); PLATELET COUNT 244 K/mm3 (130-400); RED BLOOD COUNT 4.36 M/mm3 (4.20-5.60); REDCELL DISTRIBUTION WIDTH-CV 17.4 % (11.5-14.5)
[2021-11-23 15:54] LABS: ALBUMIN 2.3 gm/dL (3.4-4.8); BILIRUBIN,TOTAL 0.3 mg/dL (0.2-1.2); CALCIUM 8.6 mg/dL (8.4-10.2); CREATININE, serum 0.7 mg/dL (0.72-1.25); TOTAL PROTEIN 5.2 gm/dL (6.2-8.1)
[2021-11-23 15:56] LABS: POTASSIUM 2.9 mmol/L (3.5-4.5)
--- NOTE | 2021-11-23 20:19 | NUR ---
THIS NURSE HAS ATTEMPTED TO CALL GINA SummersCHERRYVALE) FOR PTS UPDATED MEDICATION RECORD. NO ANSWER AT THIS TIME. THIS NURSE WILL CONTINUE TO CONTACT FACILITY THIS SHIFT.
[2021-11-23 20:40] VITALS: BP 108/63; PULSE 82; TEMP 98.7
[2021-11-23 23:51] VITALS: BP 117/74; PULSE 90; TEMP 97.8
[2021-11-24] VITALS (7 sets, daily range): BP systolic 119–175; BP diastolic 66–100; PULSE 100–131; TEMP 97.8–98.5
[2021-11-24 05:04] LABS: BASO % 0.3 % (0.0-2.0); EOS # 0.1 K/mm3 (0.0-0.7); EOS % 1.1 % (0.0-4.0); GRAN # 6.2 K/mm3 (1.4-6.5); GRAN % 65.4 % (42.2-75.2); LYMPH # 2.2 K/mm3 (1.2-3.4); LYMPH % 23.3 % (20.0-51.0); MEAN CELL VOLUME 80 fl (80.0-100.0); MEAN CORPUSCULAR HGB CONC 31 g/dl (33.0-37.0); MEAN PLATELET VOLUME 10.8 fl (7.4-10.4); MONO # 0.9 K/mm3 (0.1-0.6); MONO % 9.2 % (1.7-9.3); PLATELET COUNT 253 K/mm3 (130-400); RED BLOOD COUNT 3.95 M/mm3 (4.20-5.60); REDCELL DISTRIBUTION WIDTH-CV 17.6 % (11.5-14.5)
[2021-11-24 05:14] LABS: HEMATOCRIT 31.5 % (42.0-52.0); HEMOGLOBIN 9.9 g/dl (13.5-18.0); MEAN CORPUSCULAR HEMOGLOBIN 25 pg (27-31)
[2021-11-24 05:21] LABS: CREATININE, serum 0.59 mg/dL (0.72-1.25); MAGNESIUM 1.5 mg/dL (1.6-2.6); POTASSIUM 3.6 mmol/L (3.5-4.5)
--- NOTE | 2021-11-24 05:37 | NUR ---
PT HAD UNEVENFTUL NIGHT, FREE OF OBSERVED SEIZURE ACTIVITY, PT REMAINS DISORIENTED AND CONFUSED. K REPLACED ALL SHIFT, ALL MEDICATIONS ADMINSITERED ORDERED. N/S CONTINUES TO INFUSE AT 125CC/HR TO RAC. COLOSTOMY BAG DRAINED, PT CLEANED AND DRIED AND REPOISIONTED Q2. BED ALARM ON. SEIZURE PRECUATIONS REMAIN IN PLACE.
--- NOTE | 2021-11-24 10:04 | NUR ---
PT ASSESSED. NO COMPLAINTS OF PAIN OR DYSPNEA. NO SIGNS OR SYMPTOMS OF DSITRESS. IV MEDICATIONS INFUSING WITHOUT COMPLICATION. NO OTHER CONCERNS AT THIS TIME. CALL LIGHT WITHIN REACH
--- NOTE | 2021-11-24 12:55 | NUR ---
Numerical Control Lathe Operator offered prayer and support with patient.
[2021-11-24] MEDS ORDERED: ASPIRIN 81M81 MG/TA2 PO (14:09)
[2021-11-24] MEDS ORDERED: TYLENOL 325MG325 MG PO (14:09)
[2021-11-24] MEDS ORDERED: B COMPLEX & B121 TAB (14:10)
[2021-11-24] MEDS ORDERED: LANOXIN 0.25M0.25 MG PO (14:11)
[2021-11-24] MEDS ORDERED: [UNRECOGNIZED DRUG - OTHER] PO (14:11)
[2021-11-24] MEDS ORDERED: FOLIC ACID 11 MG/TA1 PO (14:12)
[2021-11-24] MEDS ORDERED: KEPPRA1000 MG PO (14:12)
[2021-11-24] MEDS ORDERED: ELIQUIS 5MG PO (14:12)
[2021-11-24] MEDS ORDERED: LEVAQUIN 750MG750 M1 PO (14:13)
[2021-11-24] MEDS ORDERED: TOPROL XL 25MG25 MG PO (14:13)
[2021-11-24] MEDS ORDERED: FLAGYL500 MG PO (14:14)
[2021-11-24] MEDS ORDERED: MULTI-VITAMIN W1 TA2 PO (14:14)
[2021-11-24] MEDS ORDERED: ZOFRAN ODT8 MG PO (14:14)
[2021-11-24] MEDS ORDERED: PROTONIX 40MG T40 MG PO (14:15)
[2021-11-24] MEDS ORDERED: PROBIOTIC BLEN1 EACH PO (14:15)
[2021-11-24] MEDS ORDERED: MASON NATURAL2000 IU PO (14:16)
[2021-11-25] VITALS (7 sets, daily range): BP systolic 97–128; BP diastolic 5–77; PULSE 57–91; TEMP 97.2–98.5
--- NOTE | 2021-11-25 05:31 | NUR ---
PT HAD UNEVENTFUL NIGHT THIS SHIFT,NO SEIZURE ACTIVITY NOTED,PT REMAINS DISORIENTED AND CONFUSED WITH HALLUCINATORY EPISODES. THIS NURSE REORIENTED PT MX TIMES THIS SHIFT. NS CONTINUES TO INFUSE TO RAC AT 75ML/HR, ALL MEDICATIONS ADMINISTERED ORDERED. SEIZURE PRECUATIONS REMAIN IN PLACE. PT VISIBLE TO NURSES STATION.
[2021-11-25 06:46] LABS: BASO % 0.3 % (0.0-2.0); EOS # 0.2 K/mm3 (0.0-0.7); EOS % 2.5 % (0.0-4.0); GRAN # 4.7 K/mm3 (1.4-6.5); GRAN % 59.4 % (42.2-75.2); LYMPH # 2.2 K/mm3 (1.2-3.4); LYMPH % 27.8 % (20.0-51.0); MEAN CELL VOLUME 82 fl (80.0-100.0); MEAN CORPUSCULAR HGB CONC 31 g/dl (33.0-37.0); MEAN PLATELET VOLUME 10.8 fl (7.4-10.4); MONO # 0.7 K/mm3 (0.1-0.6); PLATELET COUNT 248 K/mm3 (130-400); RED BLOOD COUNT 3.97 M/mm3 (4.20-5.60); REDCELL DISTRIBUTION WIDTH-CV 17.7 % (11.5-14.5)
[2021-11-25 06:49] LABS: HEMATOCRIT 32.4 % (42.0-52.0); HEMOGLOBIN 9.9 g/dl (13.5-18.0); MEAN CORPUSCULAR HEMOGLOBIN 25 pg (27-31)
[2021-11-25 07:00] LABS: CALCIUM 7.8 mg/dL (8.4-10.2); CREATININE, serum 0.57 mg/dL (0.72-1.25); MAGNESIUM 2.1 mg/dL (1.6-2.6); POTASSIUM 3.6 mmol/L (3.5-4.5)
--- NOTE | 2021-11-25 11:42 | NUR ---
Scheduled medications given. Shift assessment performed. Patient very drowsy and only paritially oriented. Upon checking blood glucose, patient was found to have BS of 50. Order for glucose ampule recieved and administered. Upon recheck of blood glucose, BS was 102. Maintanence fluids hung. Patient as colostomy in place. No redness or irritation noted. Ouput is liquid and green. Patient denies any pain, discomfort, SOA, or further needs at this time. Call light in reach. Fall percautions in place. Seizure percautions in place.
--- NOTE | 2021-11-25 12:49 | NUR ---
Patient was previously at [facility]. Updates sent to facility. SW will continue to follow.
--- NOTE | 2021-11-25 13:07 | NUR ---
SW spoke to to complete intake Tiffany Balaji [phone]. Spouse states that patient was previously at [facility] prior to coming to the hospital for rehab. Patient went to the Dr office for an appointment, but was sent to the hospital via ambulance. Patient does not currently utilize DME and is independent with ADLs, PCP is Dr. Reyes, and pharmacy is [facility]. Patient does not currently have anyone appointed as DPOA. Updates sent to [facility]. PORFIRIO will continue to follow. DC plan: return to [facility]?
[2021-11-25 18:26] LABS: BUDDING YEAST Present (NOT PRESENT); MUCOUS Present (NOT PRESENT); PH 6 (5-8); SQUAMOUS EPITHELIAL None Seen /hpf (0-10); URINE APPEARANCE Cloudy (CLEAR/HAZY); URINE BACTERIA Rare /hpf (NONE SEEN); URINE BILIRUBIN Negative (NEGATIVE); URINE BLOOD 3+ (NEGATIVE); URINE CALCIUM OXALATE CRYSTAL Present (NOT PRESENT); URINE COLOR Amber (YELLOW); URINE GLUCOSE Negative (NEGATIVE); URINE KETONE 1+ (NEGATIVE); URINE LEUKOCYTE ESTERASE Negative (NEGATIVE); URINE NITRATE Negative (NEGATIVE); URINE PROTEIN(semi-quant) 1+ (NEGATIVE); URINE RBC >50 /hpf (0-2); URINE UROBILINOGEN Negative (NEGATIVE)
--- NOTE | 2021-11-25 19:41 | NUR ---
Patient has been very tired all day. Was A&Ox4 once this shift, the rest of the time he was lethargic and only partially oriented. BS have remained stable. PO intake encouraged. Patient was found to be retaining urine. Khoury catheter placed by Student Nurse under the supervision of this RN. Sterile techinique used. Immediate return of 400 ml recorded. Patient given po tylenol once this shift for neck pain. VSS. Patient currently resting in bed. Respirations even and unlabored. No s/s of pain or discomfort. Fall and seizure percautions in place. Call light in reach.
[2021-11-25 20:01] LABS: COLLECTION METHOD CLEAN CATCH
--- NOTE | 2021-11-25 23:00 | NUR ---
PT ALERT, BUT LETHARGIC UPON ENTRY THIS EVENING. RECEIVED FROM DAY SHIFT NURSE THAT PT HAS BEEN LETHARGIC AND DROWSY THROUGHOUT THE DAY. 5% DEXTROSE IN 1/2 NS RUNNING. MOST RECENT BLOOD SUGAR WAS 111. PT REFUSING TO EAT. WILL NOT REMAIN AWAKE LONG ENOUGH TO FEED PT. WILL CONTINUE TO ENCOURAGE FOOD THROUGHOUT THE NIGHT. PT DOES NOT REPORT ANY PAIN. SHIFT ASSESSMENT PERFORMED. MERRITT CARE ADMINISTERED. SECURED ON RIGHT LEG. RUQ COLOSTOMY NOTED. BAG EMPTIED APPROX 150 ML OF BROWN LIQUID STOOL. VITAL SIGNS AND BLOOD SUGAR STABLE. WILL CONTINUE TO PERFORM NEURO CHECKS. WILL CONTINUE TO MONITOR.
[2021-11-26] VITALS (7 sets, daily range): BP systolic 92–113; BP diastolic 53–81; PULSE 65–93; TEMP 96.1–98.1
--- NOTE | 2021-11-26 02:39 | NUR ---
FLUID FILLED SAC NOTED ON PT'S BACK LEFT SCAPULAR AREA. PT REPORTS NO PAIN WHEN PALPATED. FLUID SAC IS SOFT AND MOVEABLE. MEPELEX RE-APPLIED TO PT'S LEFT BUTTOCK. MERRITT BAG EMPTIED. BED BATH GIVEN AND ORAL CARE PERFORMED.
--- NOTE | 2021-11-26 03:04 | NUR ---
PT BLE GREW EDAMATOUS THIS NIGHT, BLE +1, D5 1/2 NS INFUSING AT 60CC/HR TO RAC, BUE NO PITTING EDEMA/SWELLING NOTED, POCKET OF SUSPECTED FLUID NOTED ON PTS RIGHT UPPER BACK, PT REPORTS NO PAIN TO SITE, HOSPITALIST FOLLOWING. THIS NURSE WILL ENSURE TO RELAY TO ONCOMING SHIFT.
--- NOTE | 2021-11-26 04:56 | NUR ---
NO ADVERSE EVENTS THROUGHOUT THE NIGHT. PT HAS BECOME MORE AWAKE AND ALERT THROUGHOUT THE NIGHT. IS ALERT WHEN NAME IS CALLED AND ORIENTED X4. STILL APPEARS TO BE SLIGHTLY DROWSY. PT HAD HYGIENE COMPLETED WITH ASSISTANCE. NOTED FLUID LOOKING SAC ON RIGHT SCAPULAR AREA. PROVIDER NOTIFIED. HAVE CONTINUED TO MONITOR THE SPOT, NO CHANGES. PT REPORTS NECK STIFNESS. CONTINUING TO FREQUENTLY REPOSITION AND DO PASSIVE ROM WITH PT. PRN TYLENOL ADMISTERED X1 FOR PAIN. NEW MEPELEX APPLIED TO PT'S BOTTOM. MEDICATIONS ADMINISTERED THROUGHOUT THE NIGHT AND EDUCATION PROVIDED. VITAL SIGNS AND BLOOD SUGARS STABLE. WILL CONTINUE TO MONITOR. NO CONCERNS AT THIS TIME.
[2021-11-26 08:00] LABS: HEMATOCRIT 39.7 % (42.0-52.0); MEAN CELL VOLUME 83 fl (80.0-100.0); MEAN CORPUSCULAR HEMOGLOBIN 25 pg (27-31); MEAN CORPUSCULAR HGB CONC 31 g/dl (33.0-37.0); MEAN PLATELET VOLUME 10.5 fl (7.4-10.4); PLATELET COUNT 236 K/mm3 (130-400); RED BLOOD COUNT 4.81 M/mm3 (4.20-5.60)
[2021-11-26 08:11] LABS: CALCIUM 7.7 mg/dL (8.4-10.2); CREATININE, serum 0.62 mg/dL (0.72-1.25)
[2021-11-26 08:18] LABS: HEMOGLOBIN 12.2 g/dl (13.5-18.0)
[2021-11-26 08:24] LABS: BAND 6 % (0-10); EOSINOPHIL 2 % (0-4); LYMPHOCYTE 24 % (20.0-51.0); NEUTROPHILS 64 % (42.0-75.2); PLATELET ESTIMATE NORMAL (NORMAL)
--- NOTE | 2021-11-26 10:32 | NUR ---
PORFIRIO contacted Kiley at [facility] and confirmed the patient is at their facility for SNF. PORFIRIO staffed with the PA. The patient may be able to discharge tomorrow. PORFIRIO to notify and email updates to Caridad at [facility]. PORFIRIO contacted and updated the patient's , Tiffany. Tiffany is in agreement to the plan and discharge tomorrow. PORFIRIO read the IM form outloud to Tiffany over the phone. Tiffany verbalized understanding and gave PORFIRIO approval to sign the form on her behalf. PORFIRIO placed a copy of the IM form in the patient's room and informed Tiffany of this.
--- NOTE | 2021-11-26 19:28 | NUR ---
Patient has had an ok day. VSS. Patient drowsy, but oriented. PRN tylenol given one time this shift for neck pain. Patient repositioned Q2. colostomy care completed. BS dropped to 59 this pm. Honey and sprite given. Oncoming RN aware. Patient denies any further pain, discomfort, SOA, or futher needs at this time Call light in reach. Fall percuations in place.
--- NOTE | 2021-11-26 20:00 | NUR ---
Initial shift assessment done- lethargic, does open eyes to calling name- answers very simple questions, ?confused- IV fluids at 60cc/hr, Khoury with clear yellow urine, Colostomy bag emotied of 175cc liquid stool, Seizure pads in place, taking meds one at a time with sips of water- will have repeat K+ level drawn at 2200.
--- NOTE | 2021-11-26 22:15 | NUR ---
Isi MARIE called and informed that pt has not been on Tele , Isi states there are no Tele boxes at this time-- she will see if any can become available tonight-
[2021-11-27] VITALS (7 sets, daily range): BP systolic 89–103; BP diastolic 49–70; PULSE 83–93; TEMP 97.1–98
--- NOTE | 2021-11-27 05:25 | NUR ---
Has been sleeping all night- does awaken when name called, follows directions-lethargic, takes meds, B/P borderline low 98/60,s- ernie aware pt has been stable with this all night- Khoury with good output throughout the night, IV fluids continue at 60cc/hr
[2021-11-27 06:47] LABS: HEMOGLOBIN 10.7 g/dl (13.5-18.0); MEAN CELL VOLUME 80 fl (80.0-100.0); MEAN CORPUSCULAR HEMOGLOBIN 25 pg (27-31); MEAN CORPUSCULAR HGB CONC 31 g/dl (33.0-37.0); MEAN PLATELET VOLUME 10.7 fl (7.4-10.4); PLATELET COUNT 215 K/mm3 (130-400); RED BLOOD COUNT 4.29 M/mm3 (4.20-5.60); REDCELL DISTRIBUTION WIDTH-CV 18.2 % (11.5-14.5)
[2021-11-27 06:52] LABS: CALCIUM 7.5 mg/dL (8.4-10.2); CREATININE, serum 0.57 mg/dL (0.72-1.25); HEMATOCRIT 34.3 % (42.0-52.0); POTASSIUM 3.7 mmol/L (3.5-4.5)
[2021-11-27 07:41] LABS: ANISOCYTOSIS 1+; BAND 1 % (0-10); EOSINOPHIL 3 % (0-4); HYPOCHROMIA 1+; LYMPHOCYTE 23 % (20.0-51.0); METAMYELOCYTE 1 % (0-0); MYELOCYTE 1 % (0-0); NEUTROPHILS 63 % (42.0-75.2); PLATELET ESTIMATE NORMAL (NORMAL)
--- NOTE | 2021-11-27 12:58 | NUR ---
The patient is less responsive today and has had poor oral intake. He is not ready for discharge. PORFIRIO notified and emailed updates to [facility].
[2021-11-27 13:51] LABS: CLOSTRIDIUM DIFF A/B NEG; CLOSTRIDIUM DIFF A/B INTERP No C.diff present
[2021-11-27 16:02] LABS: MAGNESIUM 1.7 mg/dL (1.6-2.6); PHOSPHOROUS 2.2 mg/dL (2.3-4.7)
--- NOTE | 2021-11-27 18:57 | NUR ---
Patient has had an ok. As the day has progressed, patient has become more alert, and has been able to lift and hold up his upper extremities without them falling. Patient is fully oriented. Patient able to move legs along the bed, but is unable to lift. Patient given PRN tylenol once this shift for sharp neck pain. Warm blanket placed on neck. Patient repositioned Q2. Khoury in place, securment device in use, no kinks in tubing. Ostomy care provided. Patient denies any furthe pain, discomfort, SOA, or further needs at this time. Call light in reach. Fall percautions in place. Seizure percaution in place.
--- NOTE | 2021-11-27 21:58 | NUR ---
PT ALERT TO SPEECH UPON ENTRY THIS EVENING. ORIENTED X 4 WHEN WOKEN. STILL A LITTLE DROWSY THIS EVENING, BUT NOT LETHARGIC PREVIOUS NIGHTS. SHIFT ASSESSMENT PERFORMED. LUNG SOUNDS ARE CLEAR. NO NEW EDEMA NOTED, RIGHT KNEE WITH HX KNEE SURGERY APPEARS A LITTLE EDEMATOUS WITH NO PITTING. PT REPORTS NO PAIN AT THIS TIME. D5 1/2 NS CONTINUES RUNNING AT 75 ML/HR. BLOOD SUGAR THIS EVENING WAS STABLE AT 113. CONTINUING TO ENCOURAGE ORAL INTAKE AND NUTRITION. MEDICATIONS ADMINISTERED AND EDUCATION PROVIDED. EMPTIED 100 ML FROM COLOSTOMY BAG AROUND 1999. TURNED PT ONTO THE RIGHT SIDE. WILL CONTINUE TO TURN EVERY 2 HOURS. 2 STAGE 2 WOUNDS NOTED ON THE BUTTOCKS. HEEL PROTECTORS ON BOTH FEET. VITAL SIGNS STABLE, THOUGH BP STILL RUNS SOFT. PT IS ASYMPTOMATIC, DENIES DIZZINESS. WILL CONTINUE TO MONITOR. NO CONCERNS AT THIS TIME.
[2021-11-28 00:14] VITALS: BP 107/62; PULSE 77; TEMP 97.5
[2021-11-28 04:20] VITALS: BP 90/61; PULSE 95; TEMP 98
--- NOTE | 2021-11-28 04:34 | NUR ---
PT HAS BP THIS MORNING OF 90/61. PT IS ASYMPTOMATIC AND TENDS TO RUN SOFTER. REPORTED TO HOSPITALIST. NO CHANGES AT THIS TIME. WILL CONTINUE TO MONITOR.
--- NOTE | 2021-11-28 05:04 | NUR ---
PT HAD UNEVENTFUL NIGHT. CONTINUES TO HAVE ADEUQUATE URINARY AND STOOL OUTPUT FROM INDWELLING CATHETER AND RUQ COLOSTOMY. PT RESTING, BUT IS ALERT TO SPEECH AND FOLLOWS COMMANDS. REMAINS ALERT AND ORIENTED X4. CONTINUING TO TURN EVERY 2 HOURS. BP'S HAVE CONTINUED TO RUN SOFT, BUT PT IS ASYMPTOMATIC. BLOOD SUGARS REMAIN STABLE, LAST SUGAR WAS 100. ENCOURAGING SIPS OF FLUIDS AND OFFERING SNACKS WHEN PT IS AWAKE. D5 1/2 NS FLUIDS CONTINUING. NO NEW CONCERNS AT THIS TIME. WILL CONTINUE TO MONITOR.
--- NOTE | 2021-11-28 06:00 | NUR ---
NOTED A SMALL AMOUNT OF URINE ON THE PAD UNDERNEATH THE PT. THE GENITAL AREA WAS MOIST. THE MERRITT REMAINS IN PLACE AND CONTINUES TO HAVE ADEQUATE OUTPUT. WILL CONTINUE TO MONITOR FOR ANY FURTHER LEAKAGE.
[2021-11-28 06:51] LABS: CALCIUM 7.7 mg/dL (8.4-10.2); CREATININE, serum 0.6 mg/dL (0.72-1.25); POTASSIUM 3.5 mmol/L (3.5-4.5)
[2021-11-28 06:52] LABS: HEMOGLOBIN 10.6 g/dl (13.5-18.0); MEAN CELL VOLUME 80 fl (80.0-100.0); MEAN CORPUSCULAR HEMOGLOBIN 25 pg (27-31); MEAN CORPUSCULAR HGB CONC 31 g/dl (33.0-37.0); PLATELET COUNT 208 K/mm3 (130-400); RED BLOOD COUNT 4.27 M/mm3 (4.20-5.60); REDCELL DISTRIBUTION WIDTH-CV 18.5 % (11.5-14.5)
[2021-11-28 07:13] LABS: HEMATOCRIT 34.3 % (42.0-52.0)
[2021-11-28 07:26] LABS: EOSINOPHIL 4 % (0-4); LYMPHOCYTE 22 % (20.0-51.0); NEUTROPHILS 67 % (42.0-75.2)
[2021-11-28 07:27] LABS: HYPOCHROMIA 1+
[2021-11-28 07:44] VITALS: BP 94/61; PULSE 96; TEMP 98.2
--- NOTE | 2021-11-28 08:15 | NUR ---
PATIENT CONT TO APPEAR CONFUSED AND LETHARGIC. THIS HAS BEEN HIS BASELINE UPON THIS ADMISSION. WILL CONT TO MONITOR.
--- NOTE | 2021-11-28 08:45 | NUR ---
POSITIVE BLOOD CULTURE RESULTS RECIEVED VIA FAX FROM [facility]. PROVIDER NOTIFIED. REQUESTED REMAINING RECORDS BE FAXED.
--- NOTE | 2021-11-28 11:32 | NUR ---
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
[2021-11-28 12:03] VITALS: BP 104/60; PULSE 93; TEMP 97.9
[2021-11-28 12:40] LABS: BUDDING YEAST Present (NOT PRESENT); MUCOUS Present (NOT PRESENT); PH 7 (5-8); SQUAMOUS EPITHELIAL None Seen /hpf (0-10); URINE APPEARANCE Hazy (CLEAR/HAZY); URINE BACTERIA None Seen /hpf (NONE SEEN); URINE BILIRUBIN Negative (NEGATIVE); URINE BLOOD 3+ (NEGATIVE); URINE CALCIUM OXALATE CRYSTAL Present (NOT PRESENT); URINE COLOR Yellow (YELLOW); URINE GLUCOSE Negative (NEGATIVE); URINE KETONE Negative (NEGATIVE); URINE LEUKOCYTE ESTERASE 3+ (NEGATIVE); URINE NITRATE Negative (NEGATIVE); URINE PROTEIN(semi-quant) Negative (NEGATIVE); URINE RBC >50 /hpf (0-2); URINE UROBILINOGEN Negative (NEGATIVE)
[2021-11-28 12:43] LABS: ARTERIAL BLD GAS TCO2 CT 23.2; ARTERIAL BLOOD GAS BASE EXCESS -1.2 (-2-2); ARTERIAL BLOOD GAS HCO3 22.2 meq/L (22-26); ARTERIAL BLOOD GAS PCO2 32.8 mmHg (35-45); ARTERIAL BLOOD GAS PO2 82.1 mmHg (80-100); ARTERIAL BLOOD GAS pH 7.45 (7.35-7.45)
[2021-11-28 12:44] LABS: COLLECTION METHOD CATHETER
--- NOTE | 2021-11-28 13:07 | NUR ---
PORFIRIO staffed with the PA. The patient has been started on IV antibiotics and is not near discharge now. PORFIRIO notified and emailed updates to Caridad naranjo [facility].
[2021-11-28 16:46] VITALS: BP 93/51; PULSE 94; TEMP 97.7
--- NOTE | 2021-11-28 16:54 | NUR ---
PATIENT DOING WELL THIS SHIFT. FAMILY MEMBER IN ROOM STATES THAT BEFORE PATIENT HAD ER VISIT ON 11/18 HE WAS A&O X4 WITH NO ISSUES. PATIENT IS DROWSY THIS SHIFT, EASILY AROUSED AND FOLLOWS COMMANDS BUT DOES NOT APPEAR TO KNOW WHAT IS GOING ON AROUND HIM. ABLE TO RESPOND TO NAME. DOES NOT KNOW WHERE HE IS OR WHY. APPETITE IS POOR. NO DIARRHEA. NO FEVERS. VITALS WNL. EEG DONE TODAY. IV TO RIGHT AC PATENT WITH GOOD BLOOD RETURN. NO SEIZURE ACTIVITY THIS SHIFT. DOES NOT AMBULATE AT THIS TIME. MERRITT AND COLOSTOMY PRESENT.
[2021-11-28 20:21] VITALS: BP 93/61; PULSE 117; TEMP 98.5
[2021-11-29] VITALS (7 sets, daily range): BP systolic 91–115; BP diastolic 52–72; PULSE 87–115; TEMP 97.5–98.5
[2021-11-29 06:27] LABS: HEMOGLOBIN 10.7 g/dl (13.5-18.0); MEAN CELL VOLUME 80 fl (80.0-100.0); MEAN CORPUSCULAR HEMOGLOBIN 25 pg (27-31); MEAN CORPUSCULAR HGB CONC 31 g/dl (33.0-37.0); MEAN PLATELET VOLUME 11.1 fl (7.4-10.4); PLATELET COUNT 212 K/mm3 (130-400); RED BLOOD COUNT 4.32 M/mm3 (4.20-5.60); REDCELL DISTRIBUTION WIDTH-CV 18.8 % (11.5-14.5)
[2021-11-29 06:29] LABS: HEMATOCRIT 34.6 % (42.0-52.0)
[2021-11-29 06:49] LABS: CALCIUM 7.6 mg/dL (8.4-10.2); CREATININE, serum 0.62 mg/dL (0.72-1.25); POTASSIUM 3.6 mmol/L (3.5-4.5)
[2021-11-29 07:10] LABS: BAND 1 % (0-10); EOSINOPHIL 8 % (0-4); LYMPHOCYTE 38 % (20.0-51.0); METAMYELOCYTE 4 % (0-0); MYELOCYTE 1 % (0-0); NEUTROPHILS 47 % (42.0-75.2); PLATELET ESTIMATE NORMAL (NORMAL)
--- NOTE | 2021-11-29 13:18 | NUR ---
PORFIRIO emailed updates to Caridad at [facility].
--- NOTE | 2021-11-29 20:30 | NUR ---
Patient is sleeping in bed, he reacts after calling his name, partially oriented, unable to speak loud, follows commands. difficulty to move bilateral lower extremities. Tachycardic (110's). Telemetry and catheter peoples in place. Colostomy bag with brown soft output. Receiving D5 and 1/2 Ns AT 50ml/hr. Assessment completed. Medications provided. No other needs at this time. Call light within reach. Seizure precautions in place. Continue monitoring.
[2021-11-30 03:59] VITALS: BP 109/62; PULSE 103; TEMP 98
--- NOTE | 2021-11-30 06:08 | NUR ---
Patient has been sleeping most of the night. Able to state needs as feeling cold. No seizures along the night. Report will be given to day RN.
[2021-11-30 07:01] LABS: HEMOGLOBIN 10.5 g/dl (13.5-18.0); MEAN CELL VOLUME 82 fl (80.0-100.0); MEAN CORPUSCULAR HEMOGLOBIN 25 pg (27-31); MEAN CORPUSCULAR HGB CONC 30 g/dl (33.0-37.0); MEAN PLATELET VOLUME 10.9 fl (7.4-10.4); PLATELET COUNT 222 K/mm3 (130-400)
[2021-11-30 07:05] LABS: HEMATOCRIT 34.6 % (42.0-52.0)
[2021-11-30 07:24] LABS: CALCIUM 7.7 mg/dL (8.4-10.2); CREATININE, serum 0.61 mg/dL (0.72-1.25); POTASSIUM 3.6 mmol/L (3.5-4.5)
[2021-11-30 07:44] VITALS: BP 92/53; PULSE 95; TEMP 97.8
[2021-11-30 08:06] LABS: BAND 3 % (0-10); EOSINOPHIL 1 % (0-4); LYMPHOCYTE 33 % (20.0-51.0); METAMYELOCYTE 2 % (0-0); NEUTROPHILS 52 % (42.0-75.2); PLATELET ESTIMATE NORMAL (NORMAL)
--- NOTE | 2021-11-30 11:08 | NUR ---
Ariela placed at bedside. Pt tolerated without issues. Will get confirmatory Xray.
[2021-11-30 11:29] VITALS: BP 101/65; PULSE 101; TEMP 97.6
[2021-11-30 15:18] VITALS: BP 102/54; BP 85/50; PULSE 99; TEMP 97.4
--- NOTE | 2021-11-30 15:29 | NUR ---
Xray shows Dubhoff is not in place, advanced 5 more centimeters. will obtain further xrays
--- NOTE | 2021-11-30 15:47 | NUR ---
The patient had a dobhoff placed today and plan is to start him on enteral feeds. PORFIRIO notified and emailed updates to Caridad naranjo [facility].
--- NOTE | 2021-11-30 18:32 | NUR ---
Dubhoff not in place, okayed to start tube feedings because it is in the stomach. Attempted to pull stillet unable to do so. Pulled dubhoff out approximately 10cm, still unable to pull out wire. Pt remained drowsy through the day, but would arouse to speech. Repositioned through the day. IVF infusing without issues.
[2021-11-30 20:12] VITALS: BP 107/62; PULSE 95; TEMP 97.8
--- NOTE | 2021-11-30 20:45 | NUR ---
Patient is resting in pain, awakes while calling him. Telemetry in place, HR 100'S, Catheter peoples with yellow clear output. D5 AND 1/2 NS running at 50ml/hr. Dobhuff in place but not usefull, will be replaced to start feeding and meds administration. Assessment completed. No other needs at this time. Call light within reach.
--- NOTE | 2021-11-30 22:30 | NUR ---
Dobhuff placed by Lovely, greenhouse instructor. Confirmed placed by xray. Medications provided and feeding started.
[2021-12-01] VITALS (7 sets, daily range): BP systolic 94–129; BP diastolic 43–71; PULSE 88–118; TEMP 97.5–98.5
[2021-12-01 06:20] LABS: MEAN CELL VOLUME 82 fl (80.0-100.0); MEAN CORPUSCULAR HEMOGLOBIN 25 pg (27-31); MEAN CORPUSCULAR HGB CONC 30 g/dl (33.0-37.0); MEAN PLATELET VOLUME 10.7 fl (7.4-10.4); PLATELET COUNT 218 K/mm3 (130-400); RED BLOOD COUNT 4.04 M/mm3 (4.20-5.60)
[2021-12-01 06:21] LABS: INR 1.2 (0.8-3.0); PROTHROMBIN TIME 13.8 SECONDS (9.7-12.8)
[2021-12-01 06:28] LABS: HEMATOCRIT 33.3 % (42.0-52.0)
[2021-12-01 06:40] LABS: CALCIUM 7.5 mg/dL (8.4-10.2); CREATININE, serum 0.62 mg/dL (0.72-1.25); POTASSIUM 3.8 mmol/L (3.5-4.5); VALPROIC ACID (DEPAKENE) 39.1 ug/mL (43.5-90.5)
--- NOTE | 2021-12-01 06:53 | NUR ---
Patient is resting, continue getting the feeding by the tube. No other issues along the night. Repor will be given to day RN.
--- NOTE | 2021-12-01 11:52 | NUR ---
Patient has been resting in bed, not very responsive. Does open eyes when spoken to and is tracking, but patient is not responding verbally. Moves arms w/o any difficulty; does not move lower extremeties much. Tube feeding is running at 30mL/hr into dobhoff. Khoury and ostomy remain intact and draining properly. Q2 turns in place. HOB at 45.
--- NOTE | 2021-12-01 15:47 | NUR ---
Report given to GANESH Carl, whole will take over the care of this patient.
--- NOTE | 2021-12-01 18:19 | NUR ---
PT LAYING SUPINE IN BED ON ROOM AIR. MERRITT DRAINING AT BEDSIDE CLEAR YELLOW URINE. PT SHOWING NO S/S OF DISTRESS AT THIS TIME. CALL LIGHT IS WITHIN REACH.
--- NOTE | 2021-12-01 19:40 | NUR ---
Patient is resging in bed, sleeping but easily arousable. Denies pain. It is hard for him to speak and speak loud. Partially oriented. Telemetry in place, tachycardic. Continous feeding running at 30ml/hr. Increased to 45. He is getting D5 and 1/2 NS at 50ml/hr. Gown noted wit BM. Colostomy bag leaking. Bag emptied. Changed colostomy bag and dressing. General hygiene provided. Assessment completed. Medications provided. No other needs at this time. Continue monitoring.
[2021-12-02] VITALS (7 sets, daily range): BP systolic 107–134; BP diastolic 52–83; PULSE 56–129; TEMP 97.7–98.7
--- NOTE | 2021-12-02 03:30 | NUR ---
Patient pull the feeding tube out 10 cm. It was inserted back and an x-ray ordered. Feeding restarted after confirmation of placement with Megan. SALGUERO
--- NOTE | 2021-12-02 06:57 | NUR ---
Pt continue receiving feeding. He had a tachycardic time in 120s. Report will be given to day RN.
[2021-12-02 07:51] LABS: CALCIUM 7.8 mg/dL (8.4-10.2); CREATININE, serum 0.58 mg/dL (0.72-1.25); POTASSIUM 3.5 mmol/L (3.5-4.5)
--- NOTE | 2021-12-02 08:11 | NUR ---
Vancomycin Follow-up Pharmacy Note: Original regimen: 1.25g Q12H produced trough of 25; held one dose and reduced regimen to 1g Q12H; recheck trough was 26 despite renal function continuing to be stable (SCr 0.58; eGFR 138.) Despite high trough level, dose was given 12/01/21 @ 21:00. Adjustments: Will hold doses for next 24 hours and resume at 1g Q24H on 12/03/21 @ 09:00. Bacteremia treatment will be complete 12/04/21. Repeat cultures NGTD; white count normal; afebrile entire admission. Pharmacy will continue to follow.
--- NOTE | 2021-12-02 10:44 | NUR ---
Patient a little more responsive today, nodding 'yes' or 'no' to questions. Denied any pain or nausea. HOB at 45 d/t continuous tube feedings. Khoury and ostomy remain intact and draining properly. Q2 turns in place. Patient still not moving legs much, will wiggle toes.
--- NOTE | 2021-12-02 18:19 | NUR ---
Bed bath provided, linens changed, new dressing applied to stage I ulcer on coccyx. Ostomy and peoples emptied.
--- NOTE | 2021-12-02 20:40 | NUR ---
Patient is sleeping in bed, easily arousable. Disoriented. Difficulty to speak. Follows commands. Telemetry in place, tachycardic. Feeding at continues rate 70ml/hr. Colostomy bag with brown liquid mucous output. Catheter peoples in place with yellow clear output. Assessment completed, medications provided. No other needs at this time. Bed alarm on. Continue monitoring.
--- NOTE | 2021-12-02 22:26 | NUR ---
laboratory monitor showed HR 130, called FRANK Snowden, to notify. VS were taken, pt stable and sleeping. EKG was ordered followed by a dose of metoprolol. Continue monitoring.
[2021-12-03] VITALS: BP 114/60; PULSE 48; TEMP 98.5
[2021-12-03 03:40] VITALS: BP 118/67; PULSE 112; TEMP 98.7
[2021-12-03 06:49] LABS: ALBUMIN 1.5 gm/dL (3.4-4.8); BILIRUBIN,TOTAL 0.1 mg/dL (0.2-1.2); CALCIUM 7.8 mg/dL (8.4-10.2); CREATININE, serum 0.57 mg/dL (0.72-1.25); MAGNESIUM 1.9 mg/dL (1.6-2.6); PHOSPHOROUS 0.9 mg/dL (2.3-4.7)
--- NOTE | 2021-12-03 07:05 | NUR ---
Patient continue getting his feeding. No insulin has been required. He is still tachycardic 100's. Report has been given to day GANESH.
[2021-12-03 07:29] VITALS: BP 119/71; PULSE 117; TEMP 98.2
--- NOTE | 2021-12-03 09:30 | NUR ---
Patient resting comfortably in bed. Heel protectors on, tube feed running at 70ml/hr with 100ml/ q4h. Arousable to name, and to pain. Oriented to self, month and hospital. B/L weakness in all four extremities. B/L lower extremites no muscle strength against gravity. Upper extremities, movement free, sluggish, but deliberate. Colostomy and peoples intact. IV sites dry/intact.
--- NOTE | 2021-12-03 10:35 | NUR ---
PATIENT TUBE FEED AND FLUSH BAG REPLACED. PIVOT 1.5 ELENO AT 70ML/HR AND 100ML/HR H20 Q4 FLUSH, CONTINUOUS FEED. SODIUM PHOS, VANC, AND DIFLUCAN HUNG. DOBHOFF AT 65 AT THE TEETH. COLOSTOMY DEVICE CHANGED DUE TO LEAK. AREA CLEANSED WITH WARM WATER, INCONTINENCE CREAM APPLIED TO SURROUNDING SKIN THAT IS SLIGHTLY PINK. STOMA PASTE AND APPLIANCE ADHERED WITH BARRIER CLING FILM WIPES. MERRITT IN PLACE, CARE PROVIDED, DRAINING YELLOW URINE WITH SOME SEDIMENT. PATIENT RESTING IN BED, HEAD OF BED RAISED TO 45 DEGREES.
[2021-12-03 11:19] VITALS: BP 114/66; PULSE 88; TEMP 98.1
--- NOTE | 2021-12-03 11:45 | NUR ---
ENTERED PATIENT'S ROOM TO ADMINISTER 1100 MEDS, FOUND PATIENT WITH DOBHOFF IN HANDS, REMOVED FROM NARES. NO BLEEDING, NO DISCOMFORT, NO TRAUMA NOTED. PLACED PATIENT IN MITTS. AQUIRED NEW DOBHOFF, PLACED WITH PRECEPTOR (GANESH CHUN) BEDSIDE IN LEFT NARES, 63 AT THE NARES. XRAY STAT ORDERED. PATIENT TOLERATED WELL. NO VOMITING OR GAGGING. XRAY REVEALED IN THE FUNDUS OF THE STOMACH, REQUESTED IR FOR READJUSTMENT/REPLACEMENT.
--- NOTE | 2021-12-03 13:42 | NUR ---
PATIENT LEFT FLOOR WITH PACU TECH FOR LUMBAR PUNCTURE FOLLOWED BY FLURO GUIDED DOBHOFF REPLACEMENT/CONFIRMATION. AT BEDSIDE, SIGNED CONSENT WITH AUTHOR WITNESS.
[2021-12-03 15:22] LABS: GLUCOSE,CSF 56 mg/dL (40-70); TOTAL PROTEIN,CSF 81 mg/dL (15-45)
[2021-12-03 15:59] VITALS: BP 110/67; PULSE 112; TEMP 98.2
[2021-12-03 16:00] LABS: CSF APPEARANCE CLEAR; CSF COLOR COLORLESS; CSF MONONUCLEAR 40 % (70-100); CSF RBC 760 /mm3 (0-0)
[2021-12-03 16:01] LABS: CSF POLYMORPHONUCLEAR 60 % (0-6)
--- NOTE | 2021-12-03 16:30 | NUR ---
PATIENT RETURNED FROM PACU AND RADIOLOGY. LAYING FLAT, FOR POST LUMBAR PUNCTURE PROCUDURE. DOBHOFF AT 85 AT THE LIPS. CLEARED BY RADIOLOGY FOR USE.
--- NOTE | 2021-12-03 19:08 | NUR ---
PATIENT COLOSTOMY DEVICE CHANGED 2X TODAY. DOBHOFF REPLACED, ADVANCED VIA FLOROSCOPY. MITTS APPLIED AFTER TUBE SELF REMOVED. PATIENT STILL PULLING IN SOME CONFUSED ABSENT MOMENTS. 2 SACRAL WOUNDS NOTED. STAGE 2. MEPLEX APPLIED. LUMBAR PUNCTURE PERFORMED IN PACU. PATIENT RESTING COMFORTABLY WITH HEAD OB AT 45 DEGREES AT END OF SHIFT.
[2021-12-03 20:01] VITALS: BP 106/54; PULSE 99; TEMP 98.6
--- NOTE | 2021-12-03 22:51 | NUR ---
PATIENT ALERT BUT DROWSY, PARTIALLY ORIENTED. MITTS ARE ON PER DAY SHIFT HE WAS PULLING OUT HIS FEEDING TUBE. HS MEDS CRUSHED AND GIVEN VIA DOBHOFF. COLOSTOMY WITH WATERY BROWN OUTPUT. NEURO CHECKS HAVE BEEN STABLE WITH NO CHANGES. MEPILEX TO COCCYX. REMAINS NPO PER ST. CURRENTLY RESTING IN BED. DENIES PAIN WHEN ASKED. CALL LIGHT IN REACH. BED ALARM ON. SEIZURE PADS IN PLACE.
[2021-12-04] VITALS (7 sets, daily range): BP systolic 94–111; BP diastolic 48–65; PULSE 85–117; TEMP 98–98.4
[2021-12-04 06:21] LABS: MEAN CELL VOLUME 83 fl (80.0-100.0); MEAN CORPUSCULAR HGB CONC 30 g/dl (33.0-37.0); MEAN PLATELET VOLUME 10.5 fl (7.4-10.4); PLATELET COUNT 205 K/mm3 (130-400); RED BLOOD COUNT 3.37 M/mm3 (4.20-5.60); REDCELL DISTRIBUTION WIDTH-CV 19.6 % (11.5-14.5)
[2021-12-04 06:25] LABS: HEMATOCRIT 28.1 % (42.0-52.0); HEMOGLOBIN 8.3 g/dl (13.5-18.0); MEAN CORPUSCULAR HEMOGLOBIN 25 pg (27-31)
[2021-12-04 06:34] LABS: CALCIUM 7.5 mg/dL (8.4-10.2); CREATININE, serum 0.55 mg/dL (0.72-1.25); PHOSPHOROUS 2.5 mg/dL (2.3-4.7); POTASSIUM 3.9 mmol/L (3.5-4.5)
--- NOTE | 2021-12-04 06:48 | NUR ---
PATIENT RESTING COMFORTABLY IN BED, TUBE FEED COMPLETE. LIGHTS TURNED LOW, AND DOOR OPEN, MITTS IN PLACE. DOBHOFF IN PLACE.
[2021-12-04 06:57] LABS: BAND 11 % (0-10); LYMPHOCYTE 34 % (20.0-51.0); NEUTROPHILS 52 % (42.0-75.2)
[2021-12-04 06:58] LABS: HYPOCHROMIA 2+; TEAR DROP CELLS 1+
--- NOTE | 2021-12-04 08:30 | NUR ---
PATIENT POTASSIUM PROTOCOL INTIATED FOR K@ 3.9. IV 10MEQ STARTED AT ~0800. TUBE FEED AND FLUSH BAG REPLACED AT TIME OF ASSESSMENT. PATIENT AROUSABLE, ALERT TO TIME, MONTH, LOCATION AND SELF. TELE LEADS IN PLACE. MERRITT/OSTOMY INPLACE, DRAINING APPROPRIATELY. BOTH PIV'S FLUSH APPROPRIATELY. ANTIBIOTICS HUNG. 2+ PITTING EDEMA IN B/L LE, AND DEPENDANT EDEMA. B/L LOWER LATERAL LUNG BEAL COARSE. DOBHOFF IN PLACE, B/L MITTS IN PLACE. HOB AT 45 DEGREES. LIGHTS DIM, DOOR OPEN.
--- NOTE | 2021-12-04 13:21 | NUR ---
PORFIRIO emailed updates to Caridad at [facility].
[2021-12-04 14:06] LABS: HSV 2 DNA PCR QUAL Not Detected (())
--- NOTE | 2021-12-04 18:48 | NUR ---
PATIENT RESTING IN BED. MORE ALERT THIS EVENING. AROUSABLE TO SPEECH, B/L SOFT MITS IN PLACE TO PROTECT DOBHOFF. TUBE FEED RUNNING. FECAL MUCUS MOVEMENT FROM RECTUM. Q2 TURNS. FAILED SPEECH EVAL FOR CLEAR LIQUIDS. DOOR OPEN, LIGHTS LOWERED. ON RIGHT SIDE.
--- NOTE | 2021-12-04 21:53 | NUR ---
COLOSTOMY NOTED TO RUQ
[2021-12-05 00:03] VITALS: BP 106/67; PULSE 112; TEMP 98.2
[2021-12-05 04:22] VITALS: BP 104/68; PULSE 113; TEMP 98.5
[2021-12-05 07:39] VITALS: BP 116/68; PULSE 101; TEMP 98.2
--- NOTE | 2021-12-05 09:00 | NUR ---
DISCUSSED WITH F[employer]DINAND PROPULSION GENERATOR REPAIRER THE ORDER FOR TUBE FEEDING. THE PATIENT HAS BEEN HAVING TUBE FEEDINGS PER ORDER, UPON MY BEGINNING OF SHIFT, THE PATIENT'S TUBE FEED WAS COMPLETED, HOWEVER, IT WAS COMPLETED BEFORE THE NEW BOTTLE ARRIVED. INITIALLY READ THAT THE ORDER WAS FOR 8 HR FEED. CLARIFIED WITH FERDINAND THAT IT IS INDEED CONTINUOUS.
--- NOTE | 2021-12-05 11:05 | NUR ---
THE PATIENT'S DOBHOFF TUBE GOT CLOGGED DURING ADMINISTRATION OF BANATROL. THINNED THE LIQUIDS AND WAS ABLE TO GET IT THROUGH. MORNIGN MEDCIATIIONS WERE LATE DUE TO THE CLOGGED TUBE. NO OTHER CONCERNS.
[2021-12-05 11:26] VITALS: BP 103/61; PULSE 103; TEMP 98.6
--- NOTE | 2021-12-05 13:14 | NUR ---
The PA notified PORFIRIO that they would be looking at discharging the patient today. The patient is going to need to be on continuous enteral feeds upon discharge. PORFIRIO notified Caridad at [facility]. Caridad states that their team will need to look over updates first. She states that from yesterdays updates, it did not look like the patient was near discharge. PORFIRIO faxed updates to Caridad. Caridad, at [facility], then left PORFIRIO a voicemail. The patient still has his dobbhoff placed. Caridad states that they cannot take the patient with a dobbhoff, but could with a peg tube or g-tube. PORFIRIO notified the PA. PORFIRIO updated Caridad. Caridad states that if the patient does get a peg tube placed this week, they would not be able to take him over the weekend, due to it being a new peg tube and if there were any complications. *Discharge plan: [facility]*
[2021-12-05 15:46] VITALS: BP 108/53; PULSE 106; TEMP 98.3
--- NOTE | 2021-12-05 19:24 | NUR ---
PT HAS HAD UNEVENTFUL EVENING. THE PATIENT HAS BEEN A&OX4 THIS SHIFT. HE HAS STATED THAT HIS EYES FEEL HEAVY. THE PATIENT'S DIET HAS BEEN ADVANCED TO CLEAR LIQUIDS, HOWEVER THE PATIENT HAS NOT DESIRED ANYTHING AT THIS TIME. REPORT GIVEN TO LIBERAL ARTS TEACHER GANESH KOVACS AND GANESH CROWE.
[2021-12-05 20:33] VITALS: BP 110/67; PULSE 109; TEMP 98.1
[2021-12-06 00:34] VITALS: BP 109/71; PULSE 118; TEMP 98.6
--- NOTE | 2021-12-06 01:23 | NUR ---
Pt alert and oriented this evening, resting and sleeping but is alert to speech and noise. . Continuing to turn pt every 2 hours. Stage 2 ulcers on bottom have appeared to have improved, but bottom is still reddened in the sacral area. Colostomy in RUQ has light colored liquid stool. Khoury catheter noted. Adequate output from both. Vital signs stable. Last blood sugar was 115. New tube feeding started at 0110 at 70ml/hr with a 100 ml flush every 4 hours. Pt tolerating feeding well. Pt denies pain. Shift assessment completed. Medications administered with education provided. Pt reports no questions at this time. Will continue to monitor.
[2021-12-06 04:16] VITALS: BP 117/65; PULSE 117; TEMP 98.6
--- NOTE | 2021-12-06 05:40 | NUR ---
Pt had an uneventful night. Remains alert and oriented when awoken. Tolerating tube feeds well. Blood sugar remains stable. Vital signs remain stable. Pt reports no acute pain at this time. Continuing to turn pt every 2 hours to prevent sacral breakdown. Adequate peoples catheter and colostomy output throughout the shift. Pt tolerates medications through Dobhoff. Dobhoff was retaped on the nose and remains at 68 cm. Small amount of rectal leakage noted. Pt reports no new questions at this time. Will continue to monitor. No new concerns at this time.
--- NOTE | 2021-12-06 07:26 | NUR ---
PT HEAD OF BED SAT UP; ENCOURAGED TO DRINK WATER OR GATORADE TODAY. IRIS RN ORIENTING WITH THIS RN TODAY, WILL RESUME CARE AT THIS TIME.
[2021-12-06 08:09] VITALS: BP 113/67; PULSE 120; TEMP 98.2
[2021-12-06 11:43] VITALS: BP 111/64; PULSE 114; TEMP 97.6
--- NOTE | 2021-12-06 11:56 | NUR ---
PATIENT MORE ALERT AND ORIENTED TODAY. DOBHOFF, MIDLY DISPLACED WHEN ASSESSED. AT 30. READVANCED, TO 68, XRAY CONFIRMED. PATIENT TOLERATED WELL. TUBE FEED LINE AND FLUSH BAG CHANGED AND RESTARTED. MAC ARTIST BEDISDE FOR TUBE FEED CHANGE. C/O SLIGHT HEADACHE. LIGHTS REDUCED, PATIENT RESETTLED. PLAN TO ADVANCED DIET WITH SPEECH THERAPY AND WORK WITH PT/OT FOR AMBULATION.
--- NOTE | 2021-12-06 13:07 | NUR ---
The clinical team plans to hopefully advance the patient's diet today. He continuous to have dobbhoff tube with tube feeds. PORFIRIO emailed updates to Caridad at [facility].
[2021-12-06 16:00] VITALS: BP 106/64; PULSE 113; TEMP 97.9
--- NOTE | 2021-12-06 19:28 | NUR ---
PATIENT RESTING COMFORTABLY IN BED, WITH AT BEDSIDE. TRIALING ORAL INTAKE OF CLEAR LIQUIDS. TOLERATING WELL. EASILY FATIGUED. WILL NEED ENDURANCE BUILDING. TUBE FEED RUNNING AT 70MLS/HR WITH 100ML/Q4H FLUSH. COLOSTOMY INTACT, HEELS FLOATED. NO SIGNIFICANT EVENTS THIS SHIFT. PLAN FOR REMOVAL OF DOBHOFF TOMORROW IF ORAL INTAKE ADEQUATE.
[2021-12-06 20:25] VITALS: BP 114/70; PULSE 118; TEMP 97.9
[2021-12-07 00:03] VITALS: BP 124/72; PULSE 117; TEMP 98.2
--- NOTE | 2021-12-07 03:16 | NUR ---
Entered Pt's room and noticed that the tube feed had leaked a significant amount onto the bed. On the Dobhoff tube, the side purple port had popped open and was leaking out tube feed. I assessed the tubing and restarted the feed, which would not run because the pump said there was a clog. I attempted, with another nurse, flushing the tubing. The tube would not flush and the side port would pop open when hard pressure was applied. I stopped the tube feed and notified FRANK Rosales. The following interventions have been ordered: 1. Remove the dobhoff tube and stop the continuous tube feedings 2. Start D5 1/2 NS and continue with Q6 accuchecks. Will continue to monitor pt
--- NOTE | 2021-12-07 03:52 | NUR ---
Removed Dobhoff tube from pt. Tube was taped at 68 in. Pt tolerated removal well. D5 NS started through RH IV site at 75 ml/hr. Will continue to check blood sugars every 6 hours. No concerns at this time.
[2021-12-07 04:33] VITALS: BP 102/54; PULSE 110; TEMP 97.5
--- NOTE | 2021-12-07 04:49 | NUR ---
Pt remains alert and oriented overnight. Reports no pain. Complains of having a dry cough. Tube feedings have been d/c and dobhoff tube has been removed due to kinking/clogging issue. Pt has been started on D5NS @ 75ml/hr. Continuing with Q6 accuchecks and Q4 neuro checks. Pt has been turned and repositioned every 2 hours. Adequate output from peoples catheter and colostomy in RUQ. Pt is able to swallow pills with clear liquids. Tolerates clear liquids, but needs to be fed in order to eat. Pt will not feed himself. Vital signs and blood sugars remain stable. Last blood sugar was 116. Pt reports no questions at this time. Will continue to monitor.
[2021-12-07 06:13] LABS: MEAN CELL VOLUME 83 fl (80.0-100.0); MEAN CORPUSCULAR HGB CONC 31 g/dl (33.0-37.0); MEAN PLATELET VOLUME 10.3 fl (7.4-10.4); PLATELET COUNT 258 K/mm3 (130-400); RED BLOOD COUNT 3.26 M/mm3 (4.20-5.60); REDCELL DISTRIBUTION WIDTH-CV 19.9 % (11.5-14.5)
[2021-12-07 06:17] LABS: HEMATOCRIT 26.9 % (42.0-52.0); HEMOGLOBIN 8.2 g/dl (13.5-18.0); MEAN CORPUSCULAR HEMOGLOBIN 25 pg (27-31)
[2021-12-07 06:40] LABS: CALCIUM 8.7 mg/dL (8.4-10.2); CREATININE, serum 0.56 mg/dL (0.72-1.25); POTASSIUM 4.5 mmol/L (3.5-4.5)
[2021-12-07 06:58] LABS: BAND 22 % (0-10); LYMPHOCYTE 23 % (20.0-51.0); METAMYELOCYTE 1 % (0-0); NEUTROPHILS 33 % (42.0-75.2)
[2021-12-07 06:59] LABS: ANISOCYTOSIS 2+; PLATELET ESTIMATE NORMAL (NORMAL)
--- NOTE | 2021-12-07 07:00 | NUR ---
THE PATIENT IS AWAKE AND ALERT AT THIS TIME. NO DOBHOFF IN PLACE. THE PATIENT IS READY TO EAT AND DRINK TODAY. WILL AWAIT SPEECH THERAPY EVALUATION WELL SWALLOW STUDY. NO OTHER CONCERNS AT THIS TIME.
[2021-12-07 07:44] VITALS: BP 140/67; PULSE 125; TEMP 98.3
[2021-12-07 12:09] VITALS: BP 104/63; PULSE 107; TEMP 98.1
--- NOTE | 2021-12-07 14:59 | NUR ---
The PA notified PORFIRIO that the clinical team would be ready to discharge the patient today. The patient's dobbhoff was removed last night. He has been tolerating clear liquids. plans to do a swallow study today for diet recommendations upon discharge. PORFIRIO notified and faxed updates to Caridad at [facility]. Caridad states that they would not be able to take the patient back until they know ST's recommendations and want to make sure he is tolerating the diet. They will not be able to admit over the weekend. Looking at discharge on Friday, but they will want to see updates. PORFIRIO updated the hospitalist. PORFIRIO attempted to contact and update the patient's , Tiffany. PORFIRIO left her a voicemail.
[2021-12-07 16:12] VITALS: BP 111/64; PULSE 105; TEMP 97.6
[2021-12-07 21:36] VITALS: BP 108/56; PULSE 100; TEMP 97.9
[2021-12-08 00:45] VITALS: BP 119/50; PULSE 110; TEMP 97.9
--- NOTE | 2021-12-08 01:01 | NUR ---
Pt has a blood sugar of 79. Had the pt drink 4 oz of orange juice. Will continue to monitor.
--- NOTE | 2021-12-08 03:06 | NUR ---
Pt alert and oriented this evening, though still appears a little drowsy. Is awoken and alert when name is called. Pt reports no pain. Shift assessment performed. Medications administered and education provided. Pt tolerated pills well with sips of juice. Last blood sugar was 76, had the patient drink 4 oz of orange juice. Vital signs stable. Colostomy and peoples catheter have adequate output. Encouraging pt to continue to take sips of juice. Pt asleep now, but has been calm and cooperative this evening. Continuing with Q4 neuro checks and turning every 2 hours or more. Pt reports no concerns at this time, will continue to monitor.
[2021-12-08 03:52] VITALS: BP 113/48; PULSE 109; TEMP 97.9
--- NOTE | 2021-12-08 07:32 | NUR ---
Pt had uneventful night. Alert and oriented when awake, but remains drowsy when not stimulated. Reports no pain. Continued to have adequate catheter and colostomy output. Blood sugar this morning was 78, so I had him drink about 2 oz of grape juice. Continued with Q4 neuro checks and turned pt every 2 hours. Pt reports no questions. Continued to tolerate liquids well and swallowed pills adequately. Will continue to monitor, no new concerns at this time.
[2021-12-08 07:53] VITALS: BP 113/59; PULSE 107; TEMP 98.2
--- NOTE | 2021-12-08 08:00 | NUR ---
Patient resting, easily awakened with verbal command. A&Ox3. VSS. IV CDI. Denies pain and discomfort. Patient positioned for breakfast and comfort. Seizure precautions in place. Patient independent with feeds. Call light within reach. Bed alarm on
[2021-12-08 12:19] VITALS: BP 101/47; PULSE 103; TEMP 97.8
[2021-12-08 15:32] VITALS: BP 109/57; PULSE 112; TEMP 98.3
--- NOTE | 2021-12-08 17:54 | NUR ---
Patient sitting up in bed family at the bedside. A&Ox4. VSS 3L NC O2, independent in the room. IV CDI. Denies pain and discomfort. Call light within reach
[2021-12-08 21:25] VITALS: BP 103/56; PULSE 110; TEMP 97.6
[2021-12-09 00:07] VITALS: BP 83/52; PULSE 110; TEMP 98.2
[2021-12-09 05:04] VITALS: BP 113/62; PULSE 107; TEMP 98.9
[2021-12-09 06:32] LABS: MEAN CELL VOLUME 82 fl (80.0-100.0); MEAN CORPUSCULAR HGB CONC 30 g/dl (33.0-37.0); PLATELET COUNT 270 K/mm3 (130-400); RED BLOOD COUNT 3.35 M/mm3 (4.20-5.60); REDCELL DISTRIBUTION WIDTH-CV 19.6 % (11.5-14.5)
[2021-12-09 06:39] LABS: HEMATOCRIT 27.5 % (42.0-52.0); HEMOGLOBIN 8.3 g/dl (13.5-18.0); MEAN CORPUSCULAR HEMOGLOBIN 25 pg (27-31)
[2021-12-09 06:47] LABS: CALCIUM 8.7 mg/dL (8.4-10.2); CREATININE, serum 0.64 mg/dL (0.72-1.25); POTASSIUM 4.3 mmol/L (3.5-4.5)
[2021-12-09 07:29] LABS: BAND 1 % (0-10); EOSINOPHIL 5 % (0-4); LYMPHOCYTE 21 % (20.0-51.0); NEUTROPHILS 64 % (42.0-75.2)
[2021-12-09 07:30] LABS: ANISOCYTOSIS 2+; HYPOCHROMIA 3+; PLATELET ESTIMATE NORMAL (NORMAL)
--- NOTE | 2021-12-09 08:00 | NUR ---
Patient sitting up in bed, nursing staff repositioned the patient for breakfast. Patient drowsy, but A&Ox4. VSS. IV CDI. Reports discomfort in neck and hip, repositionings helps with discomfort. Seizure precautions in place. Call light within reach
[2021-12-09 08:09] VITALS: BP 120/68; PULSE 113; TEMP 98.3
[2021-12-09 11:54] VITALS: BP 112/66; PULSE 104; TEMP 97.9
[2021-12-09 16:41] VITALS: BP 101/58; PULSE 96; TEMP 97.2
--- NOTE | 2021-12-09 18:08 | NUR ---
Patient drowsy most of the shift, did not eat much for meals. Nursing staff provided a total bath and repositioned patient on right side. A&Ox3. VSS. IV RT hand CDI. Khoury dependent drainage. Colostomy intact. Seizure precautions in place. Call light within reach
[2021-12-09 20:10] VITALS: BP 121/65; PULSE 98; TEMP 97.5
[2021-12-10 00:17] VITALS: BP 104/64; PULSE 106; TEMP 97.9
[2021-12-10 04:04] VITALS: BP 122/66; PULSE 104; TEMP 97.7
--- NOTE | 2021-12-10 06:00 | NUR ---
ASSESSMENT COMPLETE FOR THIS SHIFT. PT RESTING IN BED RUBBING HIS EYES. PT COMPLAINED OF GENERALIZED PAIN. PT GIVEN TYLENOL FOR PAIN. PT FELT THE TYLENOL WAS EFFECTIVE. PT DENIED PALPITATIONS, N,V,D, SOB OR DIZZINESS. PT EXPRESSED NO OTHER NEEDS AT THIS TIME. CALL LIGHT WITHIN REACH.
[2021-12-10 06:26] LABS: MEAN CELL VOLUME 82 fl (80.0-100.0); MEAN CORPUSCULAR HGB CONC 30 g/dl (33.0-37.0); PLATELET COUNT 315 K/mm3 (130-400); RED BLOOD COUNT 3.68 M/mm3 (4.20-5.60); REDCELL DISTRIBUTION WIDTH-CV 19.4 % (11.5-14.5)
[2021-12-10 06:38] LABS: HEMATOCRIT 30.3 % (42.0-52.0); MEAN CORPUSCULAR HEMOGLOBIN 24 pg (27-31)
[2021-12-10 06:42] LABS: ALBUMIN 1.8 gm/dL (3.4-4.8); BILIRUBIN,TOTAL 0.1 mg/dL (0.2-1.2); CALCIUM 9.2 mg/dL (8.4-10.2); CREATININE, serum 0.7 mg/dL (0.72-1.25); MAGNESIUM 2.1 mg/dL (1.6-2.6); PHOSPHOROUS 3.9 mg/dL (2.3-4.7); TOTAL PROTEIN 5.2 gm/dL (6.2-8.1)
[2021-12-10 07:25] LABS: VALPROIC ACID (DEPAKENE) 49.1 ug/mL (43.5-90.5)
[2021-12-10 07:47] VITALS: BP 116/66; PULSE 105; TEMP 97.8
[2021-12-10 07:53] LABS: BAND 7 % (0-10); EOSINOPHIL 7 % (0-4); LYMPHOCYTE 29 % (20.0-51.0); METAMYELOCYTE 2 % (0-0); MYELOCYTE 1 % (0-0); NEUTROPHILS 44 % (42.0-75.2); PLATELET ESTIMATE NORMAL (NORMAL)
[2021-12-10] MEDS ORDERED: DEPAKOTE500 MG PO (08:51)
--- NOTE | 2021-12-10 09:25 | NUR ---
Clinical updates from the weekend sent to Caridad at [facility]. Caridad states that the DON will have to review them and give the ok to accept for an admission today. MARISELA not in the building at this time. Caridad states that she will call me after review.
--- NOTE | 2021-12-10 11:02 | NUR ---
Patient laying in bed upon entering the room. Patient is drowsy but arouses when spoken to. Khoury and ostomy draining appropriately. This RN set the patient up for [facility]. Patient did well with morning medications, took w/ sips of water. Patient denies any pain. Patient repositioned in bed. Plan at this time is to discharge to [facility].
[2021-12-10 11:55] VITALS: BP 107/71; PULSE 99; TEMP 98
--- NOTE | 2021-12-10 12:36 | NUR ---
printed circuit board reworker notified by Caridad at [facility] that transportation could be here at 1230 to pick the patient up. Patient's RN notified and covid swab requested. House notified of transport time. Patient's discharge orders sent to Caridad at [facility]. Patient's Tiffany contacted and notified of the patient's discharge back to [facility] today. This SW reviewed the [facility].IM form with Tiffany via phone. She verbalizes that she has no concerns with the discharge plan and is in agreement with his return to [facility].Informed her that a copy of the letter will be mailed to her. Discharge plan: [facility] @1230
--- NOTE | 2021-12-10 13:26 | NUR ---
Patient's IM placed in the patient's chart with note for medical records to certify mail a copy to the patient's after scanned in.
--- NOTE | 2021-12-10 13:57 | NUR ---
Patient discharged back to [facility]. Khoury catheter and telemetry removed by this RN. IV removed by GANESH Gregory. Patient dressed, siri care provided and ostomy emptied/cleaned.
== END 2021-12-10 12:15 | DRG 101 ==
LOC: COL.ER 14:27 → MEDICAL 16:25 → COL.ER 16:25 → MEDICAL 11-27 21:00
PROVIDERS: Internal Medicine; Personal Emergency Response Attendant; Physician Assistant; Psychiatry & Neurology Neurology; Student in an Organized Health Care Education/Training Program; ADMIT Internal Medicine
PROC: 0DH97UZ Insertion of Feeding Device into Duodenum, Via Natural or Artificial Opening (ICD-10-PCS; 2021-11-30)
PROC: 009U3ZX Drainage of Spinal Canal, Percutaneous Approach, Diagnostic (ICD-10-PCS; principal; 2021-12-03 13:45)
DX: G40.901 Epilepsy, unspecified, not intractable, with status epilepticus (principal); N39.0 Urinary tract infection, site not specified; E44.0 Moderate protein-calorie malnutrition; I82.409 Acute embolism and thrombosis of unspecified deep veins of unspecified lower extremity; G93.40 Encephalopathy, unspecified; I48.91 Unspecified atrial fibrillation; I95.9 Hypotension, unspecified; E16.2 Hypoglycemia, unspecified; Z20.822 Contact with and (suspected) exposure to COVID-19; K11.1 Hypertrophy of salivary gland; I10 Essential (primary) hypertension; I49.9 Cardiac arrhythmia, unspecified; K21.9 Gastro-esophageal reflux disease without esophagitis; D64.9 Anemia, unspecified; E87.6 Hypokalemia; E83.42 Hypomagnesemia; E83.39 Other disorders of phosphorus metabolism; F32.9 Major depressive disorder, single episode, unspecified; F41.9 Anxiety disorder, unspecified; E78.5 Hyperlipidemia, unspecified; R63.4 Abnormal weight loss; B95.2 Enterococcus as the cause of diseases classified elsewhere; R53.81 Other malaise; Z68.24 Body mass index [BMI] 24.0-24.9, adult; Z93.2 Ileostomy status; Z96.651 Presence of right artificial knee joint; Z85.46 Personal history of malignant neoplasm of prostate; Z86.73 Personal history of transient ischemic attack (TIA), and cerebral infarction without residual deficits
CPT/HCPCS: OP; 99223-AI; 99232-AI; 99233-AI; 99239; A9575; C9113; J1450; J1650; J1953; J2060; J2765; J3370; J3475; J3480; J7030; J7040; J7042; J7050